=== PATIENT | female | born 1970 | race Caucasian/White ===

== ENCOUNTER 2025-05-02 18:47 | Inpatient (IN) | payer MEDICAID, SELFPAY ==
[2025-05-02 18:48] VITALS: BMI 28.9
[2025-05-02 18:57] VITALS: BP 106/61; PULSE 110; RESP 20; TEMP 36.7; O2SAT 97
--- NOTE | 2025-05-02 19:09 | EKG_ITS ---
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
--- NOTE | 2025-05-02 19:16 | EDNOTE_ITS ---
ED General RME/HPI General Chief complaint: Recheck/Abnormal Lab/Rx Stated complaint: SENT BY PCP FOR POSSIBLE DKA Time Seen by Provider: 05/02/25 18:57 Source: patient Arrival date/time: 05/02/25 18:47 Mode of arrival: ambulatory Limitations: no limitations RME / HPI RME / HPI narrative: Patient reportedly out of diabetic medication for extended period of time re ferred by primary care doctor for possible diabetic ketoacidosis. Patient does report ongoing polyuria/polydipsia and generalized fatigue and notes 20 pound weight loss over the last several months. There has been no definite fevers chills vomiting or diarrhea Onset (ago): week(s) Related Data Home Medications ?Medication ?Instructions ?Recorded ?Confirmed NO HX MED ##0 01/24/08 Allergies Allergy/AdvReac Type Severity Reaction Status Date / Time Penicillins Allergy Severe Swelling Verified 05/02/25 18:49 of Lip/Tongue/Throat Review of Systems Review of Systems Systems Reviewed: All systems reviewed, normal except as documented Constitutional Constitutional: Reports system reviewed and no additional complaints, except as documented Cardiovascular Cardiovascular: Denies chest pain, Reports dyspnea and Denies pedal edema Respiratory Respiratory: Denies chest congestion, Reports dyspnea and Denies excessive phlegm production Gastrointestinal Gastrointestinal: Denies diarrhea and Denies hematemesis Genitourinary Comments: Noted polyuria Neurologic Neurologic: Denies behavioral changes and Denies confusion Psychiatric Psychiatric: Denies abnormal sleep pattern, Denies behavioral changes and Denies confusion Endocrine Endocrine: Reports polydipsia and Reports polyuria Past Medical History Past Medical History RESPIRATORY: Positive Chronic Obstructive Pulmonary Disease (COPD) ENDOCRINE: Positive Diabetes Mellitus Type 2 Surgical History OTHER SURGICAL HX: Noncontributory Social History SMOKING STATUS: Unknown if ever smoked (No alcoholism) ED Exam General Limitations: Present no limitations General appearance: Present alert and in no apparent distress Head Head exam: Present atraumatic Eye Eye exam: Present normal appearance, PERRL and EOMI ENT ENT exam: Present normal exam, normal oropharynx and mucous membranes dry Neck Neck exam: Present normal inspection, full ROM and trachea midline Chest Chest inspection: Present normal inspection and symmetric chest wall rise Respiratory Respiratory exam: Present normal lung sounds bilaterally Cardiovascular Cardiovascular exam: Present normal rhythm, tachycardia and normal heart sounds Abdominal Exam Abdominal exam: Present soft and normal bowel sounds; Absent distention or tenderness Extremities Exam Extremities exam: Present normal inspection and full ROM Back Exam Back exam: Present normal inspection and full ROM Neurological Exam Neurological exam: Present alert, oriented X3 and CN II-XII intact Psychiatric Psychiatric exam: Present normal affect, normal mood and anxious Skin Skin exam: Present warm, dry, intact and pallor Course Quality Measures none Orders Category Date Time Status Admit to Inpatient Status Routine Admission 05/02/25 23:51 Active Patient Condition Routine Admission 05/02/25 23:51 Ordered Bedside Blood Glucose Q1H Care 05/02/25 23:54 Active Bedside Blood Glucose STAT Care 05/02/25 19:10 Active Paint Formulator Q4H Care 05/02/25 23:54 Active Paint Formulator STAT Care 05/02/25 19:10 Active Continuous Pulse Oximetry NOW Care 05/02/25 23:51 Completed DKA Protocol QSHIFT Care 05/02/25 23:54 Active EKG (ED ONLY) *Do not use* NOW Care 05/02/25 19:10 Completed Insert IV STAT Care 05/02/25 19:10 Active NPO NOW Care 05/02/25 23:52 Active Notify provider NEEDED Care 05/02/25 19:10 Active Notify provider NEEDED Care 05/02/25 23:51 Active Strict Intake and Output Routine Care 05/02/25 23:51 Ordered Referral Registered Dietitian Routine Cons 05/02/25 23:54 Active Diet NPO (NOW) Diet 05/02/25 23:52 Active EKG (ED Only) Stat Exams 05/02/25 19:09 Draft XR chest 1V portable Stat Exams 05/02/25 23:54 Ordered Arterial Blood Gas Stat Lab 05/02/25 23:23 Completed Beta Hydroxybutyrate DAILY Lab 05/04/25 09:00 Ordered Beta Hydroxybutyrate DAILY Lab 05/05/25 09:00 Ordered Beta Hydroxybutyrate DAILY Lab 05/06/25 09:00 Ordered Beta Hydroxybutyrate Stat Lab 05/02/25 19:51 Completed Blood Culture (Lab) Stat Lab 05/02/25 19:48 Received CBC AM DRAW Lab 05/03/25 05:00 Ordered CBC AM DRAW Lab 05/04/25 05:00 Ordered CBC AM DRAW Lab 05/05/25 05:00 Ordered CBC Stat Lab 05/02/25 19:51 Completed Comprehensive Metabolic Panel Stat Lab 05/02/25 19:51 Completed Glycohemoglobin w (eAG) AM DRAW Lab 05/03/25 05:00 Ordered LDH (Lactate Dehydrogenase) AM DRAW Lab 05/03/25 05:00 Ordered Lactate (Lactic Acid) Q4H Lab 05/03/25 04:00 Ordered Lactate (Lactic Acid) Q4H Lab 05/03/25 08:00 Ordered Lactate (Lactic Acid) Q4H Lab 05/03/25 12:00 Ordered Lactate (Lactic Acid) Q4H Lab 05/03/25 16:00 Ordered Lactate (Lactic Acid) Q4H Lab 05/03/25 20:00 Ordered Lactate (Lactic Acid) Q4H Lab 05/04/25 00:00 Ordered Lactate (Lactic Acid) Q4H Lab 05/04/25 04:00 Ordered Lactate (Lactic Acid) Q4H Lab 05/04/25 08:00 Ordered Lactate (Lactic Acid) Q4H Lab 05/04/25 12:00 Ordered Lactate (Lactic Acid) Q4H Lab 05/04/25 16:00 Ordered Lactate (Lactic Acid) Q4H Lab 05/04/25 20:00 Ordered Lactate (Lactic Acid) Q4H Lab 05/05/25 00:00 Ordered Lactate (Lactic Acid) Stat Lab 05/02/25 19:51 Completed Magnesium AM DRAW Lab 05/03/25 05:00 Ordered Magnesium AM DRAW Lab 05/04/25 05:00 Ordered Magnesium AM DRAW Lab 05/05/25 05:00 Ordered Magnesium Q4H Lab 05/03/25 04:00 Ordered Magnesium Q4H Lab 05/03/25 08:00 Ordered Magnesium Q4H Lab 05/03/25 12:00 Ordered Magnesium Q4H Lab 05/03/25 16:00 Ordered Magnesium Q4H Lab 05/03/25 20:00 Ordered Magnesium Q4H Lab 05/04/25 00:00 Ordered Magnesium Q4H Lab 05/04/25 04:00 Ordered Magnesium Q4H Lab 05/04/25 08:00 Ordered Magnesium Q4H Lab 05/04/25 12:00 Ordered Magnesium Q4H Lab 05/04/25 16:00 Ordered Magnesium Q4H Lab 05/04/25 20:00 Ordered Magnesium Q4H Lab 05/05/25 00:00 Ordered Magnesium Stat Lab 05/02/25 19:51 Completed Phosphorous AM DRAW Lab 05/03/25 05:00 Ordered Phosphorous AM DRAW Lab 05/04/25 05:00 Ordered Phosphorous AM DRAW Lab 05/05/25 05:00 Ordered Phosphorous Q4H Lab 05/04/25 00:00 Ordered Phosphorous Q4 Lab 05/04/25 04:00 Ordered Phosphorous Q4H Lab 05/04/25 08:00 Ordered Phosphorous Q4H Lab 05/04/25 12:00 Ordered Phosphorous Q4H Lab 05/04/25 16:00 Ordered Phosphorous Q4H Lab 05/04/25 20:00 Ordered Phosphorous Q4H Lab 05/05/25 00:00 Ordered Phosphorous Stat Lab 05/02/25 19:51 Completed Renal Function Panel Q4 Lab 05/03/25 04:00 Ordered Renal Function Panel Q4 Lab 05/03/25 08:00 Ordered Renal Function Panel Q4 Lab 05/03/25 12:00 Ordered Renal Function Panel Q4 Lab 05/03/25 16:00 Ordered Renal Function Panel Q4 Lab 05/03/25 20:00 Ordered Renal Function Panel Q4 Lab 05/04/25 00:00 Ordered Renal Function Panel Q4 Lab 05/04/25 04:00 Ordered Renal Function Panel Q4 Lab 05/04/25 08:00 Ordered Renal Function Panel Q4 Lab 05/04/25 12:00 Ordered Renal Function Panel Q4 Lab 05/04/25 16:00 Ordered Renal Function Panel Q4 Lab 05/04/25 20:00 Ordered Renal Function Panel Q4 Lab 05/05/25 00:00 Ordered Thyroid Stimulating Hormone AM DRAW Lab 05/03/25 05:00 Ordered Urinalysis Stat Lab 05/02/25 19:36 Completed Venous Blood Gas Q4 Lab 05/03/25 04:15 Ordered Venous Blood Gas Q4 Lab 05/03/25 08:15 Ordered Venous Blood Gas Q4H Lab 05/03/25 12:15 Ordered Venous Blood Gas Q4 Lab 05/03/25 16:15 Ordered Venous Blood Gas Q4 Lab 05/03/25 20:15 Ordered Venous Blood Gas Q4H Lab 05/04/25 00:15 Ordered Venous Blood Gas Q4H Lab 05/04/25 04:15 Ordered Venous Blood Gas Q4H Lab 05/04/25 08:15 Ordered Venous Blood Gas Q4H Lab 05/04/25 12:15 Ordered Venous Blood Gas Q4H Lab 05/04/25 16:15 Ordered Venous Blood Gas Q4H Lab 05/04/25 20:15 Ordered Venous Blood Gas Q4H Lab 05/05/25 00:15 Ordered Albuterol/Ipratr Rt [place] [Duoneb Rt [place]] Med 05/02/25 23:51 Ordered 3 ml INH Q2HR PRN Dextrose 5%-Lactated Ringers [D5-Lr] 1,000 ml Med 05/02/25 23:51 Ordered Pot Chl Additive [KCl Additive] 40 meq IV 250 mls/hr Dextrose 5%-Lactated Ringers [D5-Lr] 1,000 ml Med 05/02/25 23:51 Ordered IV 250 mls/hr Dextrose 50% Syr [D50w Syringe Abboject] Med 05/02/25 23:51 Ordered 25 ml IV PRNMRX1 PRN Enoxaparin [Lovenox] Med 05/03/25 09:00 Ordered 40 mg SC QDAY Insulin Regular Med 05/02/25 23:16 Discontinued 8 unit IV X1 ONE KCL 20 mEq/L in D5-LR Med 05/02/25 23:51 Ordered 20 meq in 1,000 ml IV 250 mls/hr Magnesium Sulfate 2 GM Ivpb [Magnesium Sulfate Ivpb] Med 05/02/25 23:51 Ordered 2 gm in 50 ml IV 25 mls/hr Nicotine Patch [Nicoderm Patch] Med 05/02/25 22:57 Discontinued 14 mg TOP X1 ONE Nicotine Patch [Nicoderm Patch] Med 05/03/25 09:00 Ordered 21 mg TOP QDAY POT PHOS 15 mMol in NS 250 ML [Pot Phos 15 mMol in NS Med 05/02/25 23:51 Ordered 250 ml] 15 mmol in 250 ml IV PRN POTASSIUM CHL 10 mEq IVPB [Kcl Ivpb] Med 05/02/25 23:51 Ordered 10 meq in 100 ml IV 100 mls/hr POTASSIUM CHL 10 mEq IVPB [Kcl Ivpb] Med 05/02/25 23:51 Ordered 10 meq in 100 ml IV PRN Pre-Mixed [Pre-mixed Bag] 1 bag Med 05/02/25 23:51 Ordered Insulin Reg 100 Units/100 ml [Myxredlin] 100 unit IV 0.1 unit/kg/hr Ringers Lactated 1000 ml [Lactated Ringers] 1,000 ml Med 05/02/25 23:51 Ordered Pot Chl Additive [KCl Additive] 20 meq IV 250 mls/hr Ringers Lactated 1000 ml [Lactated Ringers] 1,000 ml Med 05/02/25 23:51 Ordered Pot Chl Additive [KCl Additive] 40 meq IV 250 mls/hr Ringers Lactated 1000 ml [Lactated Ringers] 1,000 ml Med 05/02/25 19:09 Discontinued IV 250 mls/hr Ringers Lactated 1000 ml [Lactated Ringers] 1,000 ml Med 05/02/25 23:51 Ordered IV 250 mls/hr Ringers Lactated 1000 ml [Lactated Ringers] 1,000 ml Med 05/02/25 22:06 Discontinued IV 999 mls/hr Ringers Lactated 1000 ml [Lactated Ringers] 1,000 ml Med 05/02/25 22:09 Discontinued IV 999 mls/hr Ringers Lactated 1000 ml [Lactated Ringers] 1,000 ml Med 05/02/25 19:15 Discontinued IV Q2H Sodium Bicarb 8.4% SYR Med 05/02/25 23:51 Ordered 50 ml IV Q4HR PRN Sodium Chloride 0.9% 250 ml [Ns] 250 ml Med 05/02/25 23:51 Ordered Sod Phos Additive [NaPhos Additive] 15 mmol IV 62.5 mls/hr Code Status Routine Oth 05/02/25 23:51 Ordered Oxygen Delivery DAILY RT 05/02/25 23:52 Active Reevaluation(s) Reevaluation #1: Patient resting comfortably. Mildly tachycardic. Blood sugar trending downward after 1 L of saline. IV insulin ordered Time: 23:00 Vital Signs Vital signs: Vital Signs Temperature 98.1 F 05/02/25 18:57 Pulse Rate 110 H 05/02/25 18:57 Respiratory Rate 20 05/02/25 18:57 Blood Pressure 106/61 05/02/25 18:57 Pulse Oximetry (%) 97 05/02/25 18:57 Oxygen Delivery Method Room Air 05/02/25 18:57 Patient notably tachycardic mildly tachypneic at rest with normal oxygenation on room air Discharge Plan Plan Patient Disposition: Admit Acute Care w/in Hospital Patient condition on transfer: Stable Prescriptions/Referrals Prescriptions/Med Rec: No Action NO HX MED Qty: 0 Referrals: No Primary/Family,Physician [Primary Care Provider] - In 1 week Problem List Clinical Impression: Diabetic ketoacidosis, Acute dehydration Patient/Caregiver Discharge Instructions Print Language: Arabic Stand Alone Forms: Nelia Award Info., Patient Portal Info Letter MDM Narrative MDM hospital course: Patient reportedly out of diabetic medication for extended period of time referred by primary care doctor for possible diabetic ketoacidosis. Patient does report ongoing polyuria/polydipsia and generalized fatigue and notes 20 pound weight loss over the last several months.. Please see PE findings. Laboratory markers are currently pending. Patient is placed on county records management officer and IV established and patient hydrated with saline to correct volume deficit with slight reduction in blood sugar. Anion gap at 16 and ketones at 5.4. Suspect mild diabetic ketoacidosis patient administered IV bolus of insulin and hospitalist was consulted for consideration of admission Clinical Information Provided by patient Medical Records Reviewed [facility] Meds/Rx Considered, not Ordered Describe details: N/A Labs/Rad/Tests considered, not Ordered Describe details: Labs reviewed Chronic Illness/Social Conditions which may negatively complicate care or outcome(s)-explain: Hx of noncompliance Lab Interpretation Labs: interpreted by nd Medication Administration(s) none (IV regular insulin) Medication Administration History Albuterol/Ipratropium (Albuterol/Ipratropium (Duoneb) Rt [place] 3 Ml Nebu) 3 ml INH Q2HR PRN PRN Reason: SHORTNESS OF BREATH OR WHEEZE Stop: 06/01/25 23:50 Dextrose (Dextrose 50%-Water Inj 50 Ml Syringe) 25 ml IV PRNMRX1 PRN PRN Reason: Blood Sugar - Low Enoxaparin Sodium (Enoxaparin Sod Inj 40 Mg/0.4 Ml Syringe) 40 mg SC QDAY GUERLINE Stop: 05/17/25 08:59 Potassium Chloride (Kcl Ivpb) 10 meq in 100 mls @ 100 mls/hr IV .Q1H PRN PRN Reason: IF POTASSIUM LESS THAN 3.3 Stop: 06/01/25 23:50 Magnesium Sulfate (Magnesium Sulfate Ivpb) 2 gm in 50 mls @ 25 mls/hr IV .Q2H PRN PRN Reason: PER DKA PROTOCOL Stop: 06/01/25 23:50 Insulin Human Regular 100 unit (/ IV Miscellaneous Supplies) 100 mls @ 7.893 mls/hr IV .[id number] PRN; Protocol PRN Reason: PER PROTOCOL Stop: 06/01/25 23:50 Dextrose/Lactated Ringer's (D5-Lr) 1,000 mls @ 250 mls/hr IV .Q4H PRN PRN Reason: PER PROTOCOL Stop: 06/01/25 23:50 Lactated Ringer's (Lactated Ringers) 1,000 mls @ 250 mls/hr IV .Q4H PRN PRN Reason: PER PROTOCOL Stop: 05/03/25 23:50 Potassium Chloride 20 meq/ (Lactated Ringer's) 1,010 mls @ 250 mls/hr IV .Q4H3M PRN PRN Reason: K LEVEL 3.3 TO 5.3mM/L Stop: 06/01/25 23:50 Potassium Chloride 40 meq/ (Lactated Ringer's) 1,020 mls @ 250 mls/hr IV .Q4H5M PRN PRN Reason: K LEVEL < 3.3 mM/L Stop: 06/01/25 23:50 Potassium Chloride 40 meq/ (Dextrose/Lactated Ringer's) 1,020 mls @ 250 mls/hr IV .Q4H5M PRN PRN Reason: K LEVEL < 3.3mM/L Stop: 06/01/25 23:50 Potassium Cl/Dextrose/Lact Ringer's (Kcl 20 Meq/L In D5-Lr) 20 meq in 1,000 mls @ 250 mls/hr IV .Q4H PRN PRN Reason: K LEVEL 3.3 TO 5.3 mM/L Stop: 06/01/25 23:50 Potassium Chloride (Kcl Ivpb) 10 meq in 100 mls @ 50 mls/hr IV PRN PRN PRN Reason: K LEVEL 3.3 to 5.3 & BG > 200 Stop: 06/01/25 23:50 Potassium Phosphate (Pot Phos 15 Mmol In Ns 250 Ml) 15 mmol in 250 mls @ 62.5 mls/hr IV PRN PRN PRN Reason: Phosphate <= 1mg/dL Stop: 06/01/25 23:50 Sodium Phosphate 15 mmol/ (Sodium Chloride) 255 mls @ 62.5 mls/hr IV .Q4H5M PRN PRN Reason: Phosphate <= 1mg/dL and K> than 5.3 Stop: 06/01/25 23:50 Nicotine (Nicotine Patch 21 Mg/24 Hr Patch.Td24) 21 mg TOP QDAY GUERLINE Stop: 06/02/25 08:59 Sodium Bicarbonate (Sodium Bicarb Inj 8.4% Syr 50 Ml Syringe) 50 ml IV Q4HR PRN PRN Reason: For ph <= to 7.0 Stop: 06/01/25 23:50 Discontinued Medications Lactated Ringer's (Lactated Ringers) 1,000 mls @ 250 mls/hr IV .Q4H PRN PRN Reason: PER PROTOCOL Stop: 05/03/25 19:08 Lactated Ringer's (Lactated Ringers) 1,000 mls @ 500 mls/hr IV Q2H GUERLINE Stop: 05/02/25 23:14 Last Admin: 05/02/25 22:12 Dose: Not Given Documented By: ARIC Non-Admin Reason: Discontinued Admin: 05/02/25 22:11 Dose: Not Given Documented By: ARIC Non-Admin Reason: Discontinued Lactated Ringer's (Lactated Ringers) 1,000 mls @ 999 mls/hr IV .Q1H1M ONE Stop: 05/02/25 23:06 Last Infusion: 05/02/25 23:13 Dose: Infused Documented By: Admin: 05/02/25 22:11 Dose: 999 mls/hr Documented By: WEI Lactated Ringer's (Lactated Ringers) 1,000 mls @ 999 mls/hr IV .Q1H1M ONE Stop: 05/02/25 23:09 Last Infusion: 05/02/25 23:43 Dose: Infused Documented By: Admin: 05/02/25 22:19 Dose: 999 mls/hr Documented By: WEI Insulin Human Regular (Insulin Hum Regular 1 Unit/0.01 Ml (Per Unit)) 8 unit IV X1 ONE Stop: 05/02/25 23:17 Last Admin: 05/02/25 23:39 Dose: 8 unit Documented By: ARIC Co-signed By: Nicotine (Nicotine Patch 14 Mg/24 Hr Patch.Td24) 14 mg TOP X1 ONE Stop: 05/02/25 22:58 Last Admin: 05/02/25 23:36 Dose: 14 mg Documented By: ARIC Diagnosis Differential diagnosis: Diabetic ketoacidosis Dispositon Disposition: Admit
[2025-05-02 19:41] LABS: Collection Type, Urine Voided
[2025-05-02 19:57] LABS: Bacteria,Urine 1+; Bilirubin,Urine Negative (Negative); Blood,Urine Negative (Negative); Clarity,Urine Clear (Clear/Hazy); Color,Urine Lt-Yellow (Lt Yel-Yel); Glucose, Urine 4+ (Negative); Ketones,Urine 3+ (Negative); Leukocyte Esterase,Urine Negative (Negative); Nitrite,Urine Negative (Negative); PH,Urine 6.0 (5.0-7.0); Protein,Urine Negative (Neg - Trace); RBC,Urine 2 /hpf (0-3); Specific Gravity,Urine 1.033 (1.001-1.035); Squamous Epithelial Cell,Urine < 1 /hpf (0-5); Urobilinogen,Urine Negative mg/dL (0.0-1.0); WBC,Urine 2 /hpf (0-5)
[2025-05-02 20:03] LABS: Lactate (Lactic Acid) 1.6 mMol/L (0.4-2.0)
[2025-05-02 20:05] LABS: Basophils # (Auto) 0.1 Thou/mm3 (0.0-0.2); Basophils % (Auto) 1 % (0-2.5); Eosinophils # (Auto) 0.0 Thou/mm3 (0.0-0.5); Eosinophils % (Auto) 0 % (0-10); Hematocrit 43.3 % (36.0-46.0); Hemoglobin 14.7 g/dL (12.0-16.0); Immature Granulocytes Auto 0.26 Thou/mm3 (0.00-0.00); Lymphocytes # (Auto) 1.7 Thou/mm3 (1.0-4.8); Lymphocytes % (Auto) 11 % (10-50); Mean Corpuscular HGB Conc 33.9 g/dl (31.0-37.0); Mean Corpuscular Hemoglobin 29.9 pg (25.0-35.0); Mean Corpuscular Volume 88 fL (80-100); Monocytes # (Auto) 1.4 Thou/mm3 (0.0-0.8); Monocytes % (Auto) 9 % (0-12); Neutrophils # (Auto) 12.1 Thou/mm3 (1.8-7.7); Neutrophils % (Auto) 78 % (37-80); Nucleated Red Blood Cell # 0.00 Thou/mm3 (0.00-0.00); Nucleated Red Blood Cell % 0 /100 WBC (0); Platelet Count 257 Thou/mm3 (140-440); RDW Standard Deviation 40.6 fL (36.4-46.3); Red Blood Count 4.92 Miln/mm3 (4.00-5.20); White Blood Count 15.5 Thou/mm3 (3.6-11.0)
[2025-05-02 20:13] LABS: Beta Hydroxybutyrate 5.4 mmol/L (<0.6)
[2025-05-02 20:41] LABS: Alanine Aminotransferase 11 U/L (10-49); Albumin, Serum 4.0 gm/dL (3.5-5.0); Albumin/Globulin Ratio 1.5 (1.2-2.2); Alkaline Phosphatase 99 U/L (46-116); Anion Gap 16 (7-16); Aspartate Amino Transferase < 8 U/L (0-34); BUN/Creatinine Ratio 13 Ratio (12-20); Bilirubin,Total 0.3 mg/dL (0.3-1.2); Blood Urea Nitrogen 14 mg/dL (9-23); Calcium 9.9 mg/dL (8.3-10.6); Calcium (Corrected) 9.9 mg/dL (8.5-10.1); Carbon Dioxide 18.1 mMol/L (20.0-31.0); Chloride 96 mMol/L (98-107); Creatinine (Component) 1.1 mg/dL (0.6-1.3); Estimated Creatinine Clearance 59.3 mL/min (>60); Globulin 2.6 gm/dL (2.3-3.5); Magnesium 2.0 mg/dL (1.6-2.6); Osmolality,Calculated 287 (275-295); Phosphorous 3.8 mg/dL (2.4-5.1); Potassium 4.5 mMol/L (3.4-5.1); Sodium 130 mMol/L (136-145); Total Protein 6.6 gm/dL (5.7-8.2); eGFR 59 See Note
[2025-05-02 20:50] LABS: Glucose 569 mg/dL (74-106)
[2025-05-02 22:11] VITALS: BP 134/82; PULSE 93; RESP 12; TEMP 37; O2SAT 99
[2025-05-02] MEDS: RINGERS LACTATED 1000 ML 1,000 ML 999 ML IV ×2 (22:11→22:19)
--- NOTE | 2025-05-02 23:00 | PC.NURSE ---
PT A/O CAME TO ER TODAY STATES SHE WAS SENT OVER BY HER PMD. PT WENT TO SEE HER TODAY AND HAD HER BLOOD SUGAR CHECKED. WAS TOLD TO COME HERE BECAUSE IT WAS 556. PT STATES HAS NOT HAD HER METFORMIN OVER 8 MONTHS D/T ISSUES WITH HER PHARMACY. PT REPORTS BEEN FEELING LIKE SHE CANT BREATH AND WEAK PAST FEW DAYS. PT REPORTS SHE SMOKES DAILY AND LAST DID METH 4 DAYS AGO.
--- NOTE | 2025-05-02 23:06 | PC.NURSE ---
DR. FARRELL MADE AWARE OF PATIENT BLOOD SUGAR 448 AFTER FIRST LITER. SECOND LITER LR STARTED.
[2025-05-02 23:27] LABS: Base Excess -8 (-3-3); HCO3 16 mEq/L (20-26); Inspired Oxygen, FIO2 21 %; O2 Saturation 91 % (91-98); PCO2 28 mmHg (32.0-48.0); pH, Arterial 7.37 (7.35-7.45)
[2025-05-02 23:30] LABS: Allen Test Performed/OK; PO2 60 mmHg (83-108); Puncture Site Left Radial
[2025-05-02] MEDS: NICOTINE PATCH 14 MG/24 HR PATCH.TD24 TOP (23:36)
[2025-05-02] MEDS: INSULIN HUM REGULAR 1 UNIT/0.01 ML (PER UNIT) 8 UNIT IV (23:39)
--- NOTE | 2025-05-02 23:54 | XR_ITS ---
Examination: AP chest single view TECHNIQUE: AP portable upright chest single view Date and time: May 03, 2025, 0047 hours INDICATIONS: Clinical diagnosis is diabetic ketoacidosis, congestion and shortness of breath today. FINDINGS: Heart size. Lungs are clear. The osseous structures are intact. IMPRESSION: No active disease
[2025-05-03] VITALS (44 sets, daily range): BP systolic 95–152; BP diastolic 43–96; PULSE 94–119; RESP 15–98; TEMP 36.6–37.6; O2SAT 93–100; BMI 28.9
--- NOTE | 2025-05-03 00:08 | ESHP_ITS ---
Documentation for date of: 05/02/25 [facility] History of Present Illness Chief complaint: weakness History of present illness: Patient is 55 years old female with past medical history of COPD, type 2 diabetes mellitus and substance use disorder presented to the ED after she was seen by her PCP in clinic due to hyperglycemia. Patient reports she was feeling extremely weak and nauseous for the last several days, denies any vomiting. She was off her home medications for approximately 9 months because they were unable to refill it. Today she came to clinic for regular checkup and her blood glucose was high prompting her PCP sending her to the ED. She denies any fever, chills, chest pain, dysuria symptoms. She does not use oxygen for her COPD and never been prescribed. She previously was prescribed metformin and Rybelsus for her diabetes. She did not have any podiatry or ophthalmology checkup anytime recently. She uses methamphetamine for many years, last use 4 days ago. She smokes for approximately 45 years 1 pack a day. On arrival to the ED her blood pressure 106/61, pulse 110, respirations 20, and pressure 98.1 ?F, oxygen saturation 97% on room air. Labs showed WBCs 15.5, sodium 130, potassium 4.5, chloride 96, bicarb 18.1, anion gap 16, creatinine 1.1, glucose 569, lactic acid 1.6, BHB 5.4. ABG showed pH 7.37, PCO2 28, PO2 60. Urinalysis showed glucose 4+, ketones 3+, bacteria 1+. EKG showed sinus tachycardia. She was given 2 L of LR and 8 units of insulin in the ED. Patient was admitted to ICU for further management of DKA. PMH: COPD, type 2 diabetes mellitus and substance use disorder. PSH: Tonsillectomy. SH: Denies drinking alcohol. Smokes tobacco for 45+ years 1 pack a day. Uses methamphetamine several times a week, last use 4 days ago. FH: Unremarkable. Allergies: Penicillin. Medications: Metformin, Rybelsus, albuterol. Review of Systems Review of Systems Systems Reviewed: All systems reviewed, normal except as documented Exam Vital Signs Temp Pulse Resp BP Pulse Ox O2 Del Method 98.3 F 95 18 152/96 H 98 Room Air 05/03/25 00:04 05/03/25 00:04 05/03/25 00:04 05/03/25 00:04 05/03/25 00:04 05/03/25 00:04 Narrative Exam Gen: Well-developed female appears older than stated age. HEENT: NCAT, PERRLA, EOMI, MMM, anicteric conjunctivae, poor dentition. CVS: normal S1 and S2. Regular tachycardia. No M/R/G. Resp: Mild wheezing B/L. No rhonchi, rales, crackles. Abd: soft, obese, non-tender, non-distended. BS+ in all 4 quadrants. MSK: Good ROM in BUE & BLE. No rash. Trace pitting edema BLE. Neuro: CN II-XII grossly intact. Strength 5/5 in BUE & BLE. Alert and oriented x3. Results: Labs 05/02/25 19:51 05/03/25 00:18 Labs: Short CBC 05/02/25 Range/Units 19:51 WBC 15.5 H (3.6-11.0) Thou/mm3 Hgb 14.7 (12.0-16.0) g/dL Hct 43.3 (36.0-46.0) % Plt Count 257 (140-440) Thou/mm3 BMP 05/02/25 19:51 Sodium 130 L Potassium 4.5 Chloride 96 L Carbon Dioxide 18.1 L BUN 14 Creatinine 1.1 Glucose 569 H* Calcium 9.9 Liver Function 05/02/25 Range/Units 19:51 Total Bilirubin 0.3 (0.3-1.2) mg/dL AST < 8 (0-34) U/L ALT 11 (10-49) U/L Alkaline Phosphatase 99 (46-116) U/L Albumin 4.0 (3.5-5.0) gm/dL Urine 05/02/25 Range/Units 19:36 Urine Color Lt-Yellow (Lt Yel-Yel) Urine Clarity Clear (Clear/Hazy) Urine pH 6.0 (5.0-7.0) Ur Specific [place]onson 1.033 (1.001-1.035) Urine Protein Negative (Neg - Trace) Urine Glucose (UA) 4+ A (Negative) ABG Interpretation ABG results: 05/02/25 23:23 ABG pH 7.37 ABG pCO2 28 L ABG pO2 60 L ABG HCO3 16 L ABG O2 Saturation 91 ABG Base Excess -8 L Quality Measures Quality Measures VTE prophylaxis Medications Home Medications and Allergies Home Medications ?Medication ?Instructions ?Recorded ?Confirmed ?Type NO HX MED ##0 01/24/08 History Allergies Allergy/AdvReac Type Severity Reaction Status Date / Time Penicillins Allergy Severe Swelling Verified 05/02/25 18:49 of Lip/Tongue/Throat Visit Medications Albuterol/Ipratropium (Albuterol/Ipratropium (Duoneb) Rt [place] 3 Ml Nebu) 3 ml INH Q2HR PRN PRN Reason: SHORTNESS OF BREATH OR WHEEZE Stop: 06/01/25 23:50 Dextrose (Dextrose 50%-Water Inj 50 Ml Syringe) 25 ml IV [id number] PRN PRN Reason: Blood Sugar - Low Enoxaparin Sodium (Enoxaparin Sod Inj 40 Mg/0.4 Ml Syringe) 40 mg SC QDAY GUERLINE Stop: 05/17/25 08:59 Potassium Chloride (Kcl Ivpb) 10 meq in 100 mls @ 100 mls/hr IV .Q1H PRN PRN Reason: IF POTASSIUM LESS THAN 3.3 Stop: 06/01/25 23:50 Magnesium Sulfate (Magnesium Sulfate Ivpb) 2 gm in 50 mls @ 25 mls/hr IV .Q2H PRN PRN Reason: PER DKA PROTOCOL Stop: 06/01/25 23:50 Insulin Human Regular 100 unit (/ IV Miscellaneous Supplies) 100 mls @ 7.893 mls/hr IV .[id number] PRN; Protocol PRN Reason: PER PROTOCOL Stop: 06/01/25 23:50 Dextrose/Lactated Ringer's (D5-Lr) 1,000 mls @ 250 mls/hr IV .Q4H PRN PRN Reason: PER PROTOCOL Stop: 06/01/25 23:50 Lactated Ringer's (Lactated Ringers) 1,000 mls @ 250 mls/hr IV .Q4H PRN PRN Reason: PER PROTOCOL Stop: 05/03/25 23:50 Potassium Chloride 20 meq/ (Lactated Ringer's) 1,010 mls @ 250 mls/hr IV .Q4H3M PRN PRN Reason: K LEVEL 3.3 TO 5.3mM/L Stop: 06/01/25 23:50 Potassium Chloride 40 meq/ (Lactated Ringer's) 1,020 mls @ 250 mls/hr IV .Q4H5M PRN PRN Reason: K LEVEL < 3.3 mM/L Stop: 06/01/25 23:50 Potassium Chloride 40 meq/ (Dextrose/Lactated Ringer's) 1,020 mls @ 250 mls/hr IV .Q4H5M PRN PRN Reason: K LEVEL < 3.3mM/L Stop: 06/01/25 23:50 Potassium Cl/Dextrose/Lact Ringer's (Kcl 20 Meq/L In D5-Lr) 20 meq in 1,000 mls @ 250 mls/hr IV .Q4H PRN PRN Reason: K LEVEL 3.3 TO 5.3 mM/L Stop: 06/01/25 23:50 Potassium Chloride (Kcl Ivpb) 10 meq in 100 mls @ 50 mls/hr IV PRN PRN PRN Reason: K LEVEL 3.3 to 5.3 & BG > 200 Stop: 06/01/25 23:50 Potassium Phosphate (Pot Phos 15 Mmol In Ns 250 Ml) 15 mmol in 250 mls @ 62.5 mls/hr IV PRN PRN PRN Reason: Phosphate <= 1mg/dL Stop: 06/01/25 23:50 Sodium Phosphate 15 mmol/ (Sodium Chloride) 255 mls @ 62.5 mls/hr IV .Q4H5M PRN PRN Reason: Phosphate <= 1mg/dL and K> than 5.3 Stop: 06/01/25 23:50 Nicotine (Nicotine Patch 21 Mg/24 Hr Patch.Td24) 21 mg TOP QDAY [facility] Stop: 06/02/25 08:59 Sodium Bicarbonate (Sodium Bicarb Inj 8.4% Syr 50 Ml Syringe) 50 ml IV Q4HR PRN PRN Reason: For ph <= to 7.0 Stop: 06/01/25 23:50 Discontinued Medications Lactated Ringer's (Lactated Ringers) 1,000 mls @ 250 mls/hr IV .Q4H PRN PRN Reason: PER PROTOCOL Stop: 05/03/25 19:08 Lactated Ringer's (Lactated Ringers) 1,000 mls @ 500 mls/hr IV Q2H GUERLINE Stop: 05/02/25 23:14 Last Admin: 05/02/25 22:12 Dose: Not Given Lactated Ringer's (Lactated Ringers) 1,000 mls @ 999 mls/hr IV .Q1H1M ONE Stop: 05/02/25 23:06 Last Infusion: 05/02/25 23:13 Dose: Infused Lactated Ringer's (Lactated Ringers) 1,000 mls @ 999 mls/hr IV .Q1H1M ONE Stop: 05/02/25 23:09 Last Infusion: 05/02/25 23:43 Dose: Infused Insulin Human Regular (Insulin Hum Regular 1 Unit/0.01 Ml (Per Unit)) 8 unit IV X1 ONE Stop: 05/02/25 23:17 Last Admin: 05/02/25 23:39 Dose: 8 unit Nicotine (Nicotine Patch 14 Mg/24 Hr Patch.Td24) 14 mg TOP X1 ONE Stop: 05/02/25 22:58 Last Admin: 05/02/25 23:36 Dose: 14 mg Assessment & Plan Plan Patient is 55 years old female with past medical history of COPD, type 2 diabetes mellitus and substance use disorder presented to the ED after she was seen by her PCP in clinic due to hyperglycemia and was admitted to ICU for further management of DKA. Neuro: No active problem. Cardiovascular: No active problem. Respiratory: #COPD. #Active tobacco smoking status. Patient reports smoking tobacco for 45+ years 1 pack a day, uses albuterol as needed for wheezing, never been prescribed home oxygen. Plan: -Breathing treatments with DuoNebs. -Supplemental oxygen. -Chest x-ray ordered. -Nicotine patch. Gastrointestinal: No active problem. Renal: No active problem. Endocrine: #Diabetic ketoacidosis. #Aej-ceanwge-utwmfimne type 2 diabetes mellitus. Patient was having significant weakness and nausea for the last several days and was sent to the ED by her PCP due to hyperglycemia. Labs showed bicarb 18.1, anion gap 16, glucose 569, BHB 5.4. ABG showed pH 7.37, PCO2 28, PO2 60. She was given 2 L of LR and 8 units of insulin in the ED. Patient was admitted to ICU for further management of DKA. Patient does not have metabolic acidosis on ABG and her anion gap is borderline, bicarb is slightly below normal limit, BHB and glucose significantly elevated, given these findings patient is going toward DKA therefore will be admitted to ICU for IV insulin and IV fluids. Patient was recommended to have better diabetes control outpatient and was recommended to follow-up with [facility]. Plan: -Started on insulin drip per DKA protocol. -Started on LR 250 cc/h per DKA protocol -Correct electrolytes per DKA protocol. -Renal panel and VBG every 4 hours. -N.p.o. Infectious Disease: No active problem. Hematology/Oncology: #Leukocytosis. On admission patient's WBC is 15.5. Patient denies any fever, chills, upper respiratory infection symptoms, dysuria symptoms. Her urinalysis showed 1+ bacteria but no WBCs or leukocyte esterase. At this moment no signs of infection were found, will continue to monitor without antibiotics. Chest x-ray was ordered. Diet: NPO. Lines: peripheral x2. DVT prophylaxis: Lovenox. GI prophylaxis: none. Code status: full code. Disposition: ICU. Plan of care discussed with attending Dr. Barajas. Devendra Lopez MD, PGY 3. Disclaimer: This note was dictated by speech recognition. Minor errors in pipe setter may be present due to voice recognition software. Attending Provider Attestation/Addendum After examination of the patient and review of the clinical data I feel that this patient needs admission to the hospital for further treatment/evaluation. I have discussed and was present for the essential components of the history, physical examination, diagnosis, and treatment plan with the resident. I agree with the patient's care as documented by the resident and amended herein by me. Pete Barajas DO. Although this document has been carefully reviewed, there may still be some phonetic and other typographical errors. These errors are purely grammatical due to imperfections in the software program and should not be construed in any way to compromise the substance of the patient's medical care during this visit. Patient seen and evaluated in the ED. Patient is a 55-year-old female with a significant past medical history of COPD not on home O2, type 2 diabetes, tobacco (current smoker with 56-jifl-cwrh history) use and substance abuse (methamphetamines) and medication noncompliance, presented to the ED at the request of her PCP for hyperglycemia. Patient further endorsed nausea, generalized weakness and altered mentation in the last several days prior to admission. The patient stated she has not been compliant with her medications for the last 8 months, she stated that she has been unable to fill most of her medications at the pharmacy however has been taking her Rybelsus as prescribed. Patient also stated she has not had regular foot exams or ophthalmology examinations for her diabetes. She is also unsure if her kidneys have been checked. She does endorse worsening diabetic neuropathy in her feet. Patient is an active smoker and active methamphetamine user, last used approximately 4 days ago. Of note, the patient did state she is unhappy with her outpatient care and would like to follow-up with the [facility] at time of discharge. She is also unsure for patient was given 2 L LR and 8 units of regular insulin in the ED In the ED, blood pressure 106/61 mmHg, patient tachycardic with a pulse of 110 however on room air with an SpO2 of 97%. Significant labs include WBC of 15.5, 80 demonstrated a pH of 7.37, EOG114, PO260 and a bicarb of 16. Sodium 130, potassium 4.5, bicarb 18.1, anion gap 16 however did slightly open wider to 17. Blood glucose was 569 on arrival, beta hydroxybutyrate elevated to 5.4. Urinalysis demonstrated 3+ ketones, 4+ glucose and 1+ bacteria however WBCs were 2. U tox was negative. EKG demonstrated sinus tachycardia, chest x-ray from my read demonstrated some vascular congestion however official read pending. Patient subsequently admitted to the intensive care unit for diabetic ketoacidosis. Potassium was WNL, patient started on insulin drip, and LR at 250 cc/h. Strict I's and O's, Accu-Cheks q1h, BMP/phos q4h. Will continue to monitor potassium and repleate as needed, once blood glucose decreases to 250, will add dextrose. A1c also ordered and pending, patient NPO. Nicotine patch ordered
--- NOTE | 2025-05-03 00:23 | PC.NURSE ---
PT FINGER STICK [id number], DR BELL MADE AWARE
--- NOTE | 2025-05-03 00:44 | PC.NURSE ---
PT REFUSED PURWIK AND SEQUEIRA CATHETER, PT SATES SHE CAN GO ON HER OWN AND WILL LET US KNOW. DR BELL MADE AWARE
[2025-05-03 00:47] LABS: Albumin, Serum 3.4 gm/dL (3.5-5.0); Anion Gap 17 (7-16); BUN/Creatinine Ratio 13 Ratio (12-20); Blood Urea Nitrogen 13 mg/dL (9-23); Calcium 8.7 mg/dL (8.3-10.6); Calcium (Corrected) 9.2 mg/dL (8.5-10.1); Carbon Dioxide 19.4 mMol/L (20.0-31.0); Chloride 98 mMol/L (98-107); Creatinine (Component) 1.0 mg/dL (0.6-1.3); Estimated Creatinine Clearance 65.2 mL/min (>60); Glucose 303 mg/dL (74-106); Magnesium 1.6 mg/dL (1.6-2.6); Osmolality,Calculated 279 (275-295); Phosphorous 3.1 mg/dL (2.4-5.1); Potassium 3.7 mMol/L (3.4-5.1); Sodium 134 mMol/L (136-145); eGFR > 60 See Note
[2025-05-03 01:08] LABS: Amphetamine/Methamp Scrn,U Negative (Negative); Barbiturate Screen,Urine Negative (Negative); Benzodiazepines Screen,Urine Negative (Negative); Benzoylecgonine Screen, Ur Negative (Negative); Fentanyl Screen,Urine Negative (Negative); Opiate Screen,Urine Negative (Negative); THC Screen,Urine Negative (Negative)
[2025-05-03] MEDS: Magnesium Sulfate 2 GM Ivpb 2 GM/50 ML BAG IV ×3 (01:14→22:17)
[2025-05-03] MEDS: INSULIN REG 100 UNITS/100 ML 100 UNIT in PRE-MIXED 1 BAG 7.893 UNIT IV (01:15)
[2025-05-03] MEDS: RINGERS LACTATED 1000 ML 1,000 ML 250 ML IV (01:19)
[2025-05-03] MEDS: POTASSIUM CHL 10 mEq IVPB 10 MEQ/100 ML BAG 50 MEQ IV (01:19)
[2025-05-03] MEDS: POTASSIUM CHL 10 mEq IVPB 10 MEQ/100 ML BAG 100 MEQ IV (03:00)
[2025-05-03] MEDS: KCL 20 mEq/L in D5-LR 20 MEQ/1,000 ML BAG 250 MEQ IV (05:22)
[2025-05-03 05:51] LABS: Lactate (Lactic Acid) 2.7 mMol/L (0.4-2.0)
[2025-05-03 05:52] LABS: Base Excess, Venous -1 (-3-3); O2 Saturation, Venous 86 % (96-97); PCO2, Venous 34 mmHg (36-56); PO2, Venous 48 mmHg (15-58); pH, Venous 7.43 (7.33-7.66)
[2025-05-03 06:00] LABS: Basophils # (Auto) 0.1 Thou/mm3 (0.0-0.2); Basophils % (Auto) 0 % (0-2.5); Eosinophils # (Auto) 0.1 Thou/mm3 (0.0-0.5); Eosinophils % (Auto) 1 % (0-10); Hematocrit 38.3 % (36.0-46.0); Hemoglobin 13.3 g/dL (12.0-16.0); Immature Granulocytes Auto 0.15 Thou/mm3 (0.00-0.00); Lymphocytes # (Auto) 1.8 Thou/mm3 (1.0-4.8); Lymphocytes % (Auto) 16 % (10-50); Mean Corpuscular HGB Conc 34.7 g/dl (31.0-37.0); Mean Corpuscular Hemoglobin 30.0 pg (25.0-35.0); Mean Corpuscular Volume 87 fL (80-100); Monocytes # (Auto) 0.8 Thou/mm3 (0.0-0.8); Monocytes % (Auto) 7 % (0-12); Neutrophils # (Auto) 8.6 Thou/mm3 (1.8-7.7); Neutrophils % (Auto) 75 % (37-80); Nucleated Red Blood Cell # 0.00 Thou/mm3 (0.00-0.00); Nucleated Red Blood Cell % 0 /100 WBC (0); Platelet Count 192 Thou/mm3 (140-440); RDW Standard Deviation 39.8 fL (36.4-46.3); Red Blood Count 4.43 Miln/mm3 (4.00-5.20); White Blood Count 11.5 Thou/mm3 (3.6-11.0)
[2025-05-03 06:28] LABS: Albumin, Serum 3.2 gm/dL (3.5-5.0); Anion Gap 13 (7-16); BUN/Creatinine Ratio 13 Ratio (12-20); Blood Urea Nitrogen 9 mg/dL (9-23); Calcium 8.5 mg/dL (8.3-10.6); Calcium (Corrected) 9.1 mg/dL (8.5-10.1); Carbon Dioxide 20.6 mMol/L (20.0-31.0); Chloride 102 mMol/L (98-107); Creatinine (Component) 0.7 mg/dL (0.6-1.3); Estimated Creatinine Clearance 93.2 mL/min (>60); Glucose 174 mg/dL (74-106); LDH (Lactate Dehydrogenase) 212 U/L (120-246); Magnesium 1.7 mg/dL (1.6-2.6); Osmolality,Calculated 274 (275-295); Phosphorous 2.1 mg/dL (2.4-5.1); Potassium 3.8 mMol/L (3.4-5.1); Sodium 136 mMol/L (136-145); Thyroid Stimulating Hormone 0.37 uIU/mL (0.55-4.78); eGFR > 60 See Note
[2025-05-03 06:31] LABS: Glucose Estimated Average 355 mg/dL (80-131); Hemoglobin A1C > 14.0 % Hgb (4.8-6.0)
[2025-05-03] MEDS: ENOXAPARIN SOD INJ 40 MG/0.4 ML SYRINGE SC (08:00)
[2025-05-03] MEDS: NICOTINE PATCH 21 MG/24 HR PATCH.TD24 TOP (08:00)
[2025-05-03 08:24] LABS: Cardiac Risk Estimate 12.5 RATIO (3.7-5.6); Cholesterol 125 mg/dL (132-200); Free T4 (Free Thyroxine) 1.03 ng/dL (0.89-1.76); HDL Cholesterol 10 mg/dL (40-60); LDL Cholesterol,Calculated 63 mg/dL (0-130); Triglycerides 259 mg/dL (30-150)
--- NOTE | 2025-05-03 08:42 | EKG_ITS ---
[facility] Test Date: 2025-05-03 Pat Name: MARIA INES COX [facility] Gender[facility] Change Management Director: GISELLE : 1970 Requested By: Sue Reina Order Number: [id number] Reading MD: Sue Reina Measurements Intervals [place] Rate: 107 P: 64 CA: 92 QRS: 85 QRSD: 74 T: 54 QT: 332 QTc: 444 Interpretive Statements SINUS TACHYCARDIA WITH SHORT CA INTERVAL ABNORMAL RHYTHM ECG Compared to ECG 05/02/2025 19:24:04 Short CA interval now present /store/S0/[id number]
[2025-05-03 08:43] LABS: Reflex Lactate? Y
[2025-05-03] MEDS: NAPH,KPH MBDB 1 PACKET (1.5 GM) PO ×2 (08:57→20:47)
[2025-05-03] MEDS: INSULIN GLARGINE (Lantus) 5 UNIT/0.05 ML (PER 5 UNITS) 36 UNIT SC (09:06)
[2025-05-03] MEDS: KCL 20 mEq/L in D5-LR 20 MEQ/1,000 ML BAG 150 MEQ IV (09:10)
[2025-05-03 09:49] LABS: Lactic Acid, 3 HR 3.4 mMol/L (0.4-2.0)
[2025-05-03 09:51] LABS: Base Excess, Venous 1 (-3-3); O2 Saturation, Venous 83 % (96-97); PCO2, Venous 29 mmHg (36-56); PO2, Venous 42 mmHg (15-58); pH, Venous 7.51 (7.33-7.66)
--- NOTE | 2025-05-03 10:02 | ESPR_ITS ---
<Statement entered by Ana Meng MD - 05/04/25 12:32> TOTAL TIME: 45MINUTES ON DIRECT MEDICAL CARE, MANAGEMENT - COORDINATION AND COUNSELING > 50% OF TOTAL TIME I saw and evaluated the patient. I reviewed the resident?s note and agree with findings and plan as documented in the resident?s note. DKA, complicated by E. coli bacteremia and UTI. On appropriate antibiotics. DKA resolved. Patient was receiving 250 mL/h with dextrose and will also had full breakfast. Blood sugar increased after transitioning off insulin drip. Adjustments made in insulin regimen. Documentation for date of: 05/03/25 Subjective Subjective Interval history: Patient is 55 years old female with past medical history of COPD, type 2 diabetes mellitus and substance use disorder presented to the ED after she was seen by her PCP in clinic due to hyperglycemia. Patient reports she was feeling extremely weak and nauseous for the last several days, denies any vomiting. She was off her home medications for approximately 9 months because they were unable to refill it. Today she came to clinic for regular checkup and her blood glucose was high prompting her PCP sending her to the ED. She denies any fever, chills, chest pain, dysuria symptoms. She does not use oxygen for her COPD and never been prescribed. She previously was prescribed metformin and Rybelsus for her diabetes. She did not have any podiatry or ophthalmology checkup anytime recently. She uses methamphetamine for many years, last use 4 days ago. She smokes for approximately 45 years 1 pack a day. On arrival to the ED her blood pressure 106/61, pulse 110, respirations 20, and pressure 98.1 ?F, oxygen saturation 97% on room air. Labs showed WBCs 15.5, sodium 130, potassium 4.5, chloride 96, bicarb 18.1, anion gap 16, creatinine 1.1, glucose 569, lactic acid 1.6, BHB 5.4. ABG showed pH 7.37, PCO2 28, PO2 60. Urinalysis showed glucose 4+, ketones 3+, bacteria 1+. EKG showed sinus tachycardia. She was given 2 L of LR and 8 units of insulin in the ED. Patient was admitted to ICU for further management of DKA. PMH: COPD, type 2 diabetes mellitus and substance use disorder. PSH: Tonsillectomy. SH: Denies drinking alcohol. Smokes tobacco for 45+ years 1 pack a day. Uses methamphetamine several times a week, last use 4 days ago. FH: Unremarkable. Allergies: Penicillin. Medications: Metformin, Rybelsus, albuterol. 05/03/2025: Patient alert oriented x 3, anion gap closed x 2, electrolytes repleted per DKA protocol. Started on carb consistent low diet, Lantus 36 subcu x 1, insulin drip and fluids discontinued after 2 hours. ASCVD risk 20.5%, high intensity statin recommended, started on atorvastatin 40 at bedtime. TSH low, free T4 within normal limits. Started on step 3 sliding scale. Along with 8 units lispro AC. Will continue to monitor patient's blood glucose levels, will consider resuming insulin drip if remains significantly elevated. Exam Vital Signs Temp Pulse Resp BP Pulse Ox O2 Del Method 98.3 F 112 H 19 112/70 100 Room Air 05/03/25 08:00 05/03/25 09:00 05/03/25 09:00 05/03/25 09:00 05/03/25 09:00 05/03/25 08:00 Narrative Exam Gen: Well-developed female appears older than stated age. HEENT: NCAT, PERRLA, EOMI, MMM, anicteric conjunctivae, poor dentition. CVS: normal S1 and S2. Regular tachycardia. No M/R/G. Resp: Mild wheezing B/L. No rhonchi, rales, crackles. Abd: soft, obese, non-tender, non-distended. BS+ in all 4 quadrants. MSK: Good ROM in BUE & BLE. No rash. Trace pitting edema BLE. Neuro: CN II-XII grossly intact. Strength 5/5 in BUE & BLE. Alert and oriented x3. Objective Labs 05/03/25 05:16 05/03/25 12:59 Labs: Laboratory Results - last 24 hr 05/02/25 05/02/25 05/02/25 19:36 19:51 23:23 WBC 15.5 H RBC 4.92 Hgb 14.7 Hct 43.3 MCV 88 MCH 29.9 MCHC 33.9 RDW Std Deviation 40.6 Plt Count 257 Neut % (Auto) 78 Lymph % (Auto) 11 [place] % (Auto) 9 Eos % (Auto) 0 Baso % (Auto) 1 Neut # (Auto) 12.1 H Lymph # (Auto) 1.7 [place] # (Auto) 1.4 H Eos # (Auto) 0.0 Baso # (Auto) 0.1 Immature Gran # (Auto) 0.26 H Absolute Nucleated RBC 0.00 Immature Gran % 2 H Nucleated RBC % 0 Puncture Site Left Radial ABG pH 7.37 ABG pCO2 28 L ABG pO2 60 L ABG HCO3 16 L ABG O2 Saturation 91 ABG Base Excess -8 L VBG pH VBG pCO2 VBG pO2 VBG O2 Sat ([place]) VBG Base Excess FiO2 21 Sodium 130 L Potassium 4.5 Chloride 96 L Carbon Dioxide 18.1 L Anion Gap 16 BUN 14 Creatinine 1.1 Estim Creat Clear Calc 59.3 L eGFR 59 L BUN/Creatinine Ratio 13 Glucose 569 H* Estimated Ave Glu mg/dL Hemoglobin A1c Calculated Osmolality 287 Lactic Acid 1.6 Calcium 9.9 Corrected Calcium 9.9 Phosphorus 3.8 Magnesium 2.0 Total Bilirubin 0.3 AST < 8 ALT 11 Alkaline Phosphatase 99 Lactate Dehydrogenase Total Protein 6.6 Albumin 4.0 Globulin 2.6 Albumin/Globulin Ratio 1.5 Triglycerides Cholesterol LDL Cholesterol, Calc HDL Cholesterol Cholesterol/HDL Ratio Beta-Hydroxybutyrate/Acetoacetate 5.4 H TSH Free T4 Ur Collection Type Voided Urine Color Lt-Yellow Urine Clarity Clear Urine pH 6.0 Ur Specific [place] 1.033 Urine Protein Negative Urine Glucose (UA) 4+ A Urine Ketones 3+ A Urine Blood Negative Urine Nitrite Negative Urine Bilirubin Negative Urine Urobilinogen (Auto) Negative Ur Leukocyte Esterase Negative Urine RBC 2 Urine WBC 2 Ur Squamous Epith Cells < 1 Urine Bacteria 1+ A Urine Opiates Screen Urine Fentanyl Screen Ur Barbiturates Screen U Amphetamin/Meth Scrn U Benzodiazepines Scrn U Cocaine Metab Screen U Marijuana (THC) Screen 05/03/25 05/03/25 05/03/25 00:00 00:18 05:16 WBC 11.5 H RBC 4.43 Hgb 13.3 Hct 38.3 MCV 87 MCH 30.0 MCHC 34.7 RDW Std Deviation 39.8 Plt Count 192 D Neut % (Auto) 75 Lymph % (Auto) 16 [place] % (Auto) 7 Eos % (Auto) 1 Baso % (Auto) 0 Neut # (Auto) 8.6 H Lymph # (Auto) 1.8 [place] # (Auto) 0.8 Eos # (Auto) 0.1 Baso # (Auto) 0.1 Immature Gran # (Auto) 0.15 H Absolute Nucleated RBC 0.00 Immature Gran % 1 H Nucleated RBC % 0 Puncture Site ABG pH ABG pCO2 ABG pO2 ABG HCO3 ABG O2 Saturation ABG Base Excess VBG pH 7.43 VBG pCO2 34 L VBG pO2 48 VBG O2 Sat ([place]) 86 L VBG Base Excess -1 FiO2 Sodium 134 L 136 Potassium 3.7 D 3.8 Chloride 98 102 Carbon Dioxide 19.4 L 20.6 Anion Gap 17 H 13 BUN 13 9 Creatinine 1.0 0.7 Estim Creat Clear Calc 65.2 93.2 eGFR > 60 > 60 BUN/Creatinine Ratio 13 13 Glucose 303 H D [address] Glu mg/dL 355 H Hemoglobin A1c > 14.0 H Calculated Osmolality 279 274 L Lactic Acid 2.7 H Calcium 8.7 8.5 Corrected Calcium 9.2 9.1 Phosphorus 3.1 2.1 L Magnesium 1.6 1.7 Total Bilirubin AST ALT Alkaline Phosphatase Lactate Dehydrogenase 212 Total Protein Albumin 3.4 L D 3.2 L Globulin Albumin/Globulin Ratio Triglycerides 259 H Cholesterol 125 L LDL Cholesterol, Calc 63 HDL Cholesterol 10 L Cholesterol/HDL Ratio 12.5 H Beta-Hydroxybutyrate/Acetoacetate TSH 0.37 L Free T4 Cancelled 1.03 Ur Collection Type Urine Color Urine Clarity Urine pH Ur Specific [place] Urine Protein Urine Glucose (UA) Urine Ketones Urine Blood Urine Nitrite Urine Bilirubin Urine Urobilinogen (Auto) Ur Leukocyte Esterase Urine RBC Urine WBC Ur Squamous Epith Cells Urine Bacteria Urine Opiates Screen Negative Urine Fentanyl Screen Negative Ur Barbiturates Screen Negative U Amphetamin/Meth Scrn Negative U Benzodiazepines Scrn Negative U Cocaine Metab Screen Negative U Marijuana (THC) Screen Negative 05/03/25 09:32 WBC RBC Hgb Hct MCV MCH MCHC RDW Std Deviation Plt Count Neut % (Auto) Lymph % (Auto) [place] % (Auto) Eos % (Auto) Baso % (Auto) Neut # (Auto) Lymph # (Auto) [place] # (Auto) Eos # (Auto) Baso # (Auto) Immature Gran # (Auto) Absolute Nucleated RBC Immature Gran % Nucleated RBC % Puncture Site ABG pH ABG pCO2 ABG pO2 ABG HCO3 ABG O2 Saturation ABG Base Excess VBG pH 7.51 VBG pCO2 29 L VBG pO2 42 VBG O2 Sat ([place]) 83 L VBG Base Excess 1 FiO2 Sodium Potassium Chloride Carbon Dioxide Anion Gap BUN Creatinine Estim Creat Clear Calc eGFR BUN/Creatinine Ratio Glucose Estimated Ave Glu mg/dL Hemoglobin A1c Calculated Osmolality Lactic Acid 3.4 H Calcium Corrected Calcium Phosphorus Magnesium Total Bilirubin AST ALT Alkaline Phosphatase Lactate Dehydrogenase Total Protein Albumin Globulin Albumin/Globulin Ratio Triglycerides Cholesterol LDL Cholesterol, Calc HDL Cholesterol Cholesterol/HDL Ratio Beta-Hydroxybutyrate/Acetoacetate TSH Free T4 Ur Collection Type Urine Color Urine Clarity Urine pH Ur Specific [place] Urine Protein Urine Glucose (UA) Urine Ketones Urine Blood Urine Nitrite Urine Bilirubin Urine Urobilinogen (Auto) Ur Leukocyte Esterase Urine RBC Urine WBC Ur Squamous Epith Cells Urine Bacteria Urine Opiates Screen Urine Fentanyl Screen Ur Barbiturates Screen U Amphetamin/Meth Scrn U Benzodiazepines Scrn U Cocaine Metab Screen U Marijuana (THC) Screen ABG Interpretation ABG results: 05/02/25 05/03/25 05/03/25 23:23 05:16 09:32 ABG pH 7.37 ABG pCO2 28 L ABG pO2 60 L ABG HCO3 16 L ABG O2 Saturation 91 ABG Base Excess -8 L VBG pH 7.43 7.51 VBG pCO2 34 L 29 L VBG pO2 48 42 VBG Base Excess -1 1 Quality Measures Quality Measures VTE prophylaxis Assessment & Plan Assessment Current Active Medications: Generic Name Dose Route Start Last Admin Trade Name Freq PRN Reason Stop Dose Admin Albuterol/Ipratropium 3 ml 05/02/25 23:51 Albuterol/Ipratropium (Duoneb) Rt [place] 3 Ml Nebu INH 06/01/25 23:50 Q2HR PRN SHORTNESS OF BREATH OR WHEEZE Dextrose 25 ml 05/02/25 23:51 Dextrose 50%-Water Inj 50 Ml Syringe IV [id number] PRN Blood Sugar - Low Dextrose 25 ml 05/03/25 08:44 Dextrose 50%-Water Inj 50 Ml Syringe IV 06/02/25 08:43 Q15MIN PRN BG 50-70 responsive npo pt Dextrose 50 ml 05/03/25 08:44 Dextrose 50%-Water Inj 50 Ml Syringe IV 06/02/25 08:43 Q15MIN PRN BG <50 OR BG <70 & pt unresponsive Enoxaparin Sodium 40 mg 05/03/25 09:00 05/03/25 08:00 Enoxaparin Sod Inj 40 Mg/0.4 Ml Syringe SC 05/17/25 08:59 40 mg QDAY GUERLINE Administration Glucagon 1 mg 05/03/25 08:44 Glucagon Inj 1 Mg Vial IM Q15MIN PRN BG <70, and no IV access Potassium Chloride 10 meq in 100 mls @ 100 mls/hr 05/02/25 23:51 05/03/25 05:00 Kcl Ivpb IV 06/01/25 23:50 Infused .Q1H PRN Infusion IF POTASSIUM LESS THAN 3.3 Magnesium Sulfate 2 gm in 50 mls @ 25 mls/hr 05/02/25 23:51 05/03/25 08:01 Magnesium Sulfate Ivpb IV 06/01/25 23:50 25 mls/hr .Q2H PRN Administration PER DKA PROTOCOL Insulin Human Regular 100 unit 100 mls @ 7.893 mls/hr 05/02/25 23:51 05/03/25 09:00 / IV Miscellaneous Supplies IV 06/01/25 23:50 0.05 unit/kg/hr .[id number] PRN 3.946 mls/hr PER PROTOCOL Titration Protocol 0.1 UNIT/KG/HR Lactated Ringer's 1,000 mls @ 250 mls/hr 05/02/25 23:51 05/03/25 05:00 Lactated Ringers IV 05/03/25 23:50 0 mls/hr .Q4H PRN Infusion PER PROTOCOL Potassium Chloride 20 meq/ 1,010 mls @ 250 mls/hr 05/02/25 23:51 Lactated Ringer's IV 06/01/25 23:50 .Q4H3M PRN K LEVEL 3.3 TO 5.3mM/L Potassium Chloride 40 meq/ 1,020 mls @ 250 mls/hr 05/02/25 23:51 Lactated Ringer's IV 06/01/25 23:50 .Q4H5M PRN K LEVEL < 3.3 mM/L Potassium Chloride 40 meq/ 1,020 mls @ 250 mls/hr 05/02/25 23:51 Dextrose/Lactated Ringer's IV 06/01/25 23:50 .Q4H5M PRN K LEVEL < 3.3mM/L Potassium Cl/Dextrose/Lact Ringer's 20 meq in 1,000 mls @ 250 mls/hr 05/02/25 23:51 05/03/25 09:10 Kcl 20 Meq/L In D5-Lr IV 06/01/25 23:50 150 mls/hr .Q4H PRN Administration K LEVEL 3.3 TO 5.3 mM/L Potassium Chloride 10 meq in 100 mls @ 50 mls/hr 05/02/25 23:51 05/03/25 03:00 Kcl Ivpb IV 06/01/25 23:50 Infused PRN PRN Infusion K LEVEL 3.3 to 5.3 & BG > 200 Potassium Phosphate 15 mmol in 250 mls @ 62.5 mls/hr 05/02/25 23:51 Pot Phos 15 Mmol In Ns 250 Ml IV 06/01/25 23:50 PRN PRN Phosphate <= 1mg/dL Sodium Phosphate 15 mmol/ 255 mls @ 62.5 mls/hr 05/02/25 23:51 Sodium Chloride IV 06/01/25 23:50 .Q4H5M PRN Phosphate <= 1mg/dL and K> than 5.3 Dextrose/Lactated Ringer's 1,000 mls @ 250 mls/hr 05/03/25 00:27 D5-Lr IV 06/01/25 23:50 .Q4H PRN PER PROTOCOL Insulin Human Lispro 0 unit 05/03/25 11:30 Insulin Lispro (Admelog) 1 Unit/0.01 Ml Unit SC 06/02/25 11:29 ACHS GUERLINE Protocol Nicotine 21 mg 05/03/25 09:00 05/03/25 08:00 Nicotine Patch 21 Mg/24 Hr Patch.Td24 TOP 06/02/25 08:59 21 mg QDAY GUERLINE Administration Pantoprazole Sodium 40 mg 05/03/25 09:00 05/03/25 08:57 Pantoprazole Inj 40 Mg Vial IVP 06/02/25 08:59 40 mg QDAY GUERLINE Administration Potassium Phos/Sodium Phos 1 packet 05/03/25 09:00 05/03/25 08:57 Naph,Kph Mbdb 1 Packet (1.5 Gm) PO 05/04/25 09:01 1 packet BID GUERLINE Administration Sodium Bicarbonate 50 ml 05/02/25 23:51 Sodium Bicarb Inj 8.4% Syr 50 Ml Syringe IV 06/01/25 23:50 Q4HR PRN For ph <= to 7.0 Plan Patient is 55 years old female with past medical history of COPD, type 2 diabetes mellitus and substance use disorder presented to the ED after she was seen by her PCP in clinic due to hyperglycemia and was admitted to ICU for further management of DKA. Neuro: No active problem. Cardiovascular: #Noncardiac chest pain Differential diagnosis: GERD, musculoskeletal, costochondritis Diagnostic workup: - EKG shows no acute ST-T changes, repeat EKG shows no dynamic EKG changes - Describes it as a chest pain due to positioning Treatment: - IV Protonix daily - Maalox as needed Follow-up: - Monitor for chest pain #Dyslipidemia Diagnostic workup: - Triglyceride 259, cholesterol 125, LDL 63, HDL 10, ASCVD risk 20.5%, high intensity statin recommended Treatment: -Started on atorvastatin 40 mg at bedtime Follow-up: - Follow-up outpatient Respiratory: #COPD, by history #Active tobacco smoking status. Diagnostic workup: -Patient reports smoking tobacco for 45+ years 1 pack a day, uses albuterol as needed for wheezing, never been prescribed home oxygen. -Denies undergoing PFTs outpatient ever. Treatment: -DuoNebs every 2 hours as needed -Chest x-ray negative -Supplemental oxygen as needed -Nicotine patch daily as needed Follow-up: - Monitor respiratory status Gastrointestinal: Diet: Carb consistent low GI prophylaxis: IV Protonix Renal: # Acute kidney injury, resolved Differential diagnosis: Prerenal, in setting of distal Diagnostic workup: -On presentation creatinine 1.1, baseline creatinine 0.6/0.7, GFR 59, BUN 14 on presentation Treatment: -IV fluids per DKA protocol Follow-up: - Follow-up renal panel #Lactic acidosis Differential diagnosis: In setting of GNR bacteremia versus DKA Diagnostic workup: - Lactate 2.7 on presentation, up trended to 3.4 Treatment: -Fluids per DKA protocol -500 cc NS bolus Follow-up: - Follow-up lactate Endocrine: #Diabetic ketoacidosis. #[id number] type 2 diabetes mellitus. Diagnostic workup: -DKA likely secondary to poor outpatient management of diabetes -Patient was having significant weakness and nausea for the last several days and was sent to the ED by her PCP due to hyperglycemia. -Labs showed bicarb 18.1, anion gap 16, glucose 569, BHB 5.4. ABG showed pH 7.37, PCO2 28, PO2 60. -Hemoglobin A1c greater than 14 Treatment: -Holding insulin drip for now, patient started on oral feeding -Was given 36 units of Lantus x 1 -Started on 8 units of lispro with step 3 sliding scale -If fingersticks continue to remain high, will consider starting again on insulin drip Follow-up: - Follow renal panel 1630 - Monitor fingerstick blood glucose - Patient was to follow-up at [facility] Infectious Disease: #1/2 GNR bacteremia #Urinary tract infection Differential diagnosis: Contamination, asymptomatic bacteriuria Diagnostic workup: -Urinalysis showed 1+ bacteria, leukocyte esterase negative -1/2 blood cultures show prelim GNR bacteremia, likely source UA Treatment: -Started on ceftriaxone 2 g every 24 hours Follow-up: - Follow-up blood cultures and speciation - Follow urine culture Hematology/Oncology: #Leukocytosis, resolving Differential diagnosis: Reactive, in setting of infection Diagnostic workup: -Does have GNR bacteremia, urine bacteria positive -Possibly reactive in setting of DKA Treatment: -Continue IV antibiotics, IV fluids Follow-up: On admission patient's WBC is 15.5. Patient denies any fever, chills, upper respiratory infection symptoms, dysuria symptoms. Her urinalysis showed 1+ bacteria but no WBCs or leukocyte esterase. At this moment no signs of infection were found, will continue to monitor without antibiotics. Chest x-ray was ordered. Diet: Carb consistent low Lines: peripheral x2. DVT prophylaxis: Lovenox. GI prophylaxis: IV Protonix Code status: Full code Disposition: ICU, High Blood Glucose Case discussed with Attending Dr. Meng. Sue Reina MD Internal Medicine Resident PGY2 Disclaimer: This note was dictated by speech recognition. Minor errors in security operations center analyst may be present due to voice recognition software.
[2025-05-03 10:14] LABS: Albumin, Serum 3.3 gm/dL (3.5-5.0); Anion Gap 10 (7-16); BUN/Creatinine Ratio 13 Ratio (12-20); Blood Urea Nitrogen 8 mg/dL (9-23); Calcium 8.5 mg/dL (8.3-10.6); Calcium (Corrected) 9.1 mg/dL (8.5-10.1); Carbon Dioxide 24.0 mMol/L (20.0-31.0); Chloride 101 mMol/L (98-107); Creatinine (Component) 0.6 mg/dL (0.6-1.3); Estimated Creatinine Clearance 108.6 mL/min (>60); Glucose 268 mg/dL (74-106); Osmolality,Calculated 277 (275-295); Phosphorous 1.5 mg/dL (2.4-5.1); Potassium 3.8 mMol/L (3.4-5.1); Sodium 135 mMol/L (136-145); eGFR > 60 See Note
[2025-05-03] MEDS: INSULIN LISPRO (AdmeLOG) 1 UNIT/0.01 ML UNIT 10 UNIT SC (10:24)
[2025-05-03] MEDS: POT CHL ADDITIVE 20 MEQ in RINGERS LACTATED 1000 ML 1,000 ML 250 MEQ IV (10:38)
[2025-05-03] MEDS: cefTRIAXone 2 GM in SODIUM CHLORIDE 0.9% (Popper) 50 ML IV (11:10)
[2025-05-03] MEDS: INSULIN LISPRO (AdmeLOG) 1 UNIT/0.01 ML UNIT SC ×3 (11:17→20:48)
[2025-05-03] MEDS: POT PHOS 15 mMol in NS 250 ML 15 MMOL/250 ML BAG 62.5 MMOL IV (11:17)
[2025-05-03 13:09] LABS: Base Excess, Venous -2 (-3-3); Lactate (Lactic Acid) 2.4 mMol/L (0.4-2.0); O2 Saturation, Venous 79 % (96-97); PCO2, Venous 38 mmHg (36-56); PO2, Venous 41 mmHg (15-58); pH, Venous 7.39 (7.33-7.66)
[2025-05-03 13:42] LABS: Albumin, Serum 3.3 gm/dL (3.5-5.0); Anion Gap 11 (7-16); BUN/Creatinine Ratio 13 Ratio (12-20); Blood Urea Nitrogen 9 mg/dL (9-23); Calcium 8.4 mg/dL (8.3-10.6); Calcium (Corrected) 9.0 mg/dL (8.5-10.1); Carbon Dioxide 21.7 mMol/L (20.0-31.0); Chloride 98 mMol/L (98-107); Creatinine (Component) 0.7 mg/dL (0.6-1.3); Estimated Creatinine Clearance 93.1 mL/min (>60); Glucose 321 mg/dL (74-106); Magnesium 1.9 mg/dL (1.6-2.6); Osmolality,Calculated 273 (275-295); Phosphorous 2.7 mg/dL (2.4-5.1); Potassium 4.0 mMol/L (3.4-5.1); Sodium 131 mMol/L (136-145); eGFR > 60 See Note
[2025-05-03] MEDS: SODIUM CHLORIDE 0.9% 500 ML 500 ML 999 ML IV ×2 (15:15→22:07)
--- NOTE | 2025-05-03 15:17 | PC.SS ---
VENIPUNCTURIST conducted bedside contact with the patient conduct initial assessment and to discuss discharge planning.? Patient confirmed demographic information.? Patient resides at home with daughter, LEONARDO Gibbs .? Patient does not utilize any form of DME to assist with ambulation.? Patient does not utilize home oxygen.? Patient states need for assistance to complete ADL?s.? Patient identified daughter, Trinidad Suarez ; as surrogate medical decision maker.? Patient?s PCP is [facility].? Patient does not possess any specialty providers.? Patient utilizes [facility] for medication services.? Patient possesses history of diabetes, insulin dependent.? Discussed discharge plan.? Patient requesting rollating walker to assist with ambulation due to presence of generalized weakness.? Informed patient that PT evaluation would need to confirm recommendation of DME request.? VENIPUNCTURIST discussed with patient SNF placement if PT evaluation recommends facility placement.? Patient receptive to short term SNF if recommended.? No preferred SNF identified.? If home health is the recommendation, no preferred agency identified.? VENIPUNCTURIST to submit SS referral on behalf the patient.? visitor services assistant to assist the patient with transportation services upon discharge.? Patient possesses coverage for transportation services through insurance.? No further discharge needs identified by the patient.? No further intervention required at this time, group social worker will be available to address any further concerns.? Next of Kin: Trinidad Erick D/C Plan: Home
--- NOTE | 2025-05-03 15:30 | PC.SS ---
[facility] referral submitted on behalf of the patient. Referral faxed to [phone]. Copy of referral placed in the patient's chart.
[2025-05-03 16:05] LABS: Reflex Lactate? Y
--- NOTE | 2025-05-03 17:02 | PC.NURSE ---
Dr. Reina notified of no BM for about a week per pt, orders received for bowel regimen, pt refusing medications, education complete, pt continues to refuse, Dr. Reina notified
[2025-05-03 17:03] LABS: Base Excess, Venous 0 (-3-3); O2 Saturation, Venous 96 % (96-97); PCO2, Venous 31 mmHg (36-56); PO2, Venous 91 mmHg (15-58); pH, Venous 7.47 (7.33-7.66)
[2025-05-03 17:05] LABS: Lactate (Lactic Acid) 1.8 mMol/L (0.4-2.0)
[2025-05-03] MEDS: INSULIN LISPRO (AdmeLOG) 1 UNIT/0.01 ML UNIT 8 UNIT SC (17:31)
[2025-05-03 17:42] LABS: Albumin, Serum 2.9 gm/dL (3.5-5.0); Anion Gap 9 (7-16); BUN/Creatinine Ratio 15 Ratio (12-20); Blood Urea Nitrogen 9 mg/dL (9-23); Calcium 7.8 mg/dL (8.3-10.6); Calcium (Corrected) 8.7 mg/dL (8.5-10.1); Carbon Dioxide 20.9 mMol/L (20.0-31.0); Chloride 102 mMol/L (98-107); Creatinine (Component) 0.6 mg/dL (0.6-1.3); Estimated Creatinine Clearance 106.3 mL/min (>60); Glucose 274 mg/dL (74-106); Magnesium 1.8 mg/dL (1.6-2.6); Osmolality,Calculated 273 (275-295); Phosphorous 2.8 mg/dL (2.4-5.1); Potassium 3.8 mMol/L (3.4-5.1); Sodium 132 mMol/L (136-145); eGFR > 60 See Note
--- NOTE | 2025-05-03 17:42 | PC.DIETICIAN ---
Nutrition Education (DKA; A1C>14): Patient was educated on dietary management of diabetes; written material was provided for future reference. *Consider prescribing a GigaBryteStyle Lidia 3 Plus sensor and [place] if discharged on insulin.
[2025-05-03] MEDS: ATORVASTATIN CALCIUM 20 MG TABLET 40 MG PO (20:47)
[2025-05-03 20:55] LABS: Base Excess, Venous 1 (-3-3); O2 Saturation, Venous 88 % (96-97); PCO2, Venous 34 mmHg (36-56); PO2, Venous 51 mmHg (15-58); pH, Venous 7.46 (7.33-7.66)
[2025-05-03 20:57] LABS: Lactate (Lactic Acid) 2.4 mMol/L (0.4-2.0)
[2025-05-03 21:26] LABS: Albumin, Serum 2.9 gm/dL (3.5-5.0); Anion Gap 8 (7-16); BUN/Creatinine Ratio 15 Ratio (12-20); Blood Urea Nitrogen 9 mg/dL (9-23); Calcium 8.0 mg/dL (8.3-10.6); Calcium (Corrected) 8.9 mg/dL (8.5-10.1); Carbon Dioxide 23.4 mMol/L (20.0-31.0); Chloride 103 mMol/L (98-107); Creatinine (Component) 0.6 mg/dL (0.6-1.3); Estimated Creatinine Clearance 106.3 mL/min (>60); Glucose 208 mg/dL (74-106); Magnesium 1.6 mg/dL (1.6-2.6); Osmolality,Calculated 272 (275-295); Phosphorous 2.4 mg/dL (2.4-5.1); Potassium 3.7 mMol/L (3.4-5.1); Sodium 134 mMol/L (136-145); eGFR > 60 See Note
[2025-05-03 23:52] LABS: Reflex Lactate? Y
[2025-05-04] VITALS (8 sets, daily range): BP systolic 102–136; BP diastolic 79–84; PULSE 87–104; RESP 16–97; TEMP 36.3–36.7; O2SAT 94–99
--- NOTE | 2025-05-04 00:20 | PC.NURSE ---
Pt arrived to unit via w/c. GCS 15, on room air, denies pain and nausea at this time, ambultory, IV patent, bed alarm activated for safety, refreshments provided. Pt alert & oriented x4. Pt verbalized understanding to fall interventions.
[2025-05-04 00:31] LABS: Lactic Acid, 3 HR 1.3 mMol/L (0.4-2.0)
[2025-05-04] MEDS: ACETAMINOPHEN 325 MG TABLET PO (04:16)
[2025-05-04 06:20] LABS: Lactate (Lactic Acid) 1.1 mMol/L (0.4-2.0)
[2025-05-04 06:24] LABS: Basophils # (Auto) 0.0 Thou/mm3 (0.0-0.2); Basophils % (Auto) 0 % (0-2.5); Eosinophils # (Auto) 0.1 Thou/mm3 (0.0-0.5); Eosinophils % (Auto) 1 % (0-10); Hematocrit 35.7 % (36.0-46.0); Hemoglobin 12.7 g/dL (12.0-16.0); Immature Granulocytes Auto 0.16 Thou/mm3 (0.00-0.00); Lymphocytes # (Auto) 2.0 Thou/mm3 (1.0-4.8); Lymphocytes % (Auto) 15 % (10-50); Mean Corpuscular HGB Conc 35.6 g/dl (31.0-37.0); Mean Corpuscular Hemoglobin 29.6 pg (25.0-35.0); Mean Corpuscular Volume 83 fL (80-100); Monocytes # (Auto) 1.3 Thou/mm3 (0.0-0.8); Monocytes % (Auto) 9 % (0-12); Neutrophils # (Auto) 9.8 Thou/mm3 (1.8-7.7); Neutrophils % (Auto) 74 % (37-80); Nucleated Red Blood Cell # 0.00 Thou/mm3 (0.00-0.00); Nucleated Red Blood Cell % 0 /100 WBC (0); Platelet Count 200 Thou/mm3 (140-440); RDW Standard Deviation 38.9 fL (36.4-46.3); Red Blood Count 4.29 Miln/mm3 (4.00-5.20); White Blood Count 13.3 Thou/mm3 (3.6-11.0)
[2025-05-04 07:02] LABS: Magnesium 1.9 mg/dL (1.6-2.6); Phosphorous 2.9 mg/dL (2.4-5.1)
[2025-05-04] MEDS: INSULIN LISPRO (AdmeLOG) 1 UNIT/0.01 ML UNIT 8 UNIT SC (08:20)
[2025-05-04] MEDS: INSULIN LISPRO (AdmeLOG) 1 UNIT/0.01 ML UNIT SC ×3 (08:20→18:05)
[2025-05-04] MEDS: cefTRIAXone 2 GM in SODIUM CHLORIDE 0.9% (Popper) 50 ML IV (08:33)
[2025-05-04] MEDS: ENOXAPARIN SOD INJ 40 MG/0.4 ML SYRINGE SC (08:33)
[2025-05-04] MEDS: NAPH,KPH MBDB 1 PACKET (1.5 GM) PO (08:34)
[2025-05-04] MEDS: NICOTINE PATCH 21 MG/24 HR PATCH.TD24 TOP (08:34)
[2025-05-04] MEDS: INSULIN GLARGINE (Lantus) 5 UNIT/0.05 ML (PER 5 UNITS) 42 UNIT SC (08:35)
[2025-05-04 09:14] LABS: Beta Hydroxybutyrate 1.1 mmol/L (<0.6)
[2025-05-04] MEDS: POLYETHYLENE GLYCOL 17 GM PACKET PO (09:50)
[2025-05-04 10:15] LABS: Albumin, Serum 3.0 gm/dL (3.5-5.0); Anion Gap 9 (7-16); BUN/Creatinine Ratio 17 Ratio (12-20); Blood Urea Nitrogen 10 mg/dL (9-23); Calcium 8.1 mg/dL (8.3-10.6); Calcium (Corrected) 8.9 mg/dL (8.5-10.1); Carbon Dioxide 25.0 mMol/L (20.0-31.0); Chloride 101 mMol/L (98-107); Creatinine (Component) 0.6 mg/dL (0.6-1.3); Estimated Creatinine Clearance 106.2 mL/min (>60); Glucose 319 mg/dL (74-106); Osmolality,Calculated 281 (275-295); Phosphorous 2.9 mg/dL (2.4-5.1); Potassium 3.8 mMol/L (3.4-5.1); Sodium 135 mMol/L (136-145); eGFR > 60 See Note
[2025-05-04] MEDS: INSULIN LISPRO (AdmeLOG) 1 UNIT/0.01 ML UNIT 10 UNIT SC ×2 (12:30→18:06)
--- NOTE | 2025-05-04 12:49 | PC.PT ---
Patient was approached for PT eval at 10:30. Patient was ambulating back to bed from the bathroom with no AD and no RN assist. Patient reported she felt safe ambulating on her own. Patient is ambulatory and not a candidate for skilled PT intervention at this time. Will cancel PT eval. Patient is requesting a rollator walker for home ambulation to take rest breaks. SW made aware.
--- NOTE | 2025-05-04 13:26 | ESDS_ITS ---
<Statement entered by Justin Dozier MD - 05/15/25 14:15> I reviewed above note and agree with findings and plans. I have also personally examined the patient with medicine team and went over assessment and plan with medical team including internet architect and resident physician. Planned Discharge Date 05/04/25 DS: Providers Provider Date of admission: 05/02/25 23:51 Primary care physician: Physician No Primary/Family Admitting Provider: Duc Barajas DO Attending Provider on Admission: Duc Barajas DO Consults: 05/02/25 23:54 Referral Registered Dietitian Routine Comment: 05/03/25 08:47 Referral Registered Dietitian Routine Comment: Attending Provider on DC: RESIDENT Laura Discharging Provider: RESIDENT Laura DS: Diagnosis Problem List Completed Was Problem List Reviewed/Reconciled?: Yes Hospital Course Hospital Course Hospital course: Patient is 55 years old female with past medical history of COPD, type 2 diabetes mellitus and substance use disorder presented to the ED after she was seen by her PCP in clinic due to hyperglycemia and was admitted to ICU for further management of DKA. ED Course: On arrival to the ED her blood pressure 106/61, pulse 110, respirations 20, and pressure 98.1 ?F, oxygen saturation 97% on room air. Labs showed WBCs 15.5, sodium 130, potassium 4.5, chloride 96, bicarb 18.1, anion gap 16, creatinine 1.1, glucose 569, lactic acid 1.6, BHB 5.4. ABG showed pH 7.37, PCO2 28, PO2 60. Urinalysis showed glucose 4+, ketones 3+, bacteria 1+. EKG showed sinus tachycardia. She was given 2 L of LR and 8 units of insulin in the ED. Patient was admitted to ICU for further management of DKA. Hospital Course: Upon admission to ICU, patient started on insulin drip, LR 250 cc/h, and electrolytes correction per DKA protocol. Renal panel and VBG was taken every 4 hrs. Was given breathing treatments with DuoNebs, and supplemental oxygen for patient's COPD. Patient was given ceftriaxone 2g IV qd for her E.coli bacteremia and UTI. Patient alert oriented x 3, anion gap closed x 2, electrolytes repleated per DKA protocol. Started on carb consistent low diet, Lantus 36 subcu x 1, insulin drip and fluids discontinued after 2 hours. ASCVD risk 20.5%, high intensity statin recommended, started on atorvastatin 40 at bedtime. TSH low, free T4 within normal limits. Started on step 3 sliding scale. Along with 8 units lispro AC. Patient has been discharged with Glargine 30 units bid, Blood-glucose meter and glucose test strips. #Diabetic ketoacidosis. #Zmr-[id number] type 2 diabetes mellitus. #1/2 GNR bacteremia #Urinary tract infection # Acute kidney injury, resolved #Lactic acidosis #Leukocytosis #COPD, by history #Active tobacco smoking status. #Dyslipidemia #Noncardiac chest pain Instructions: -Please take Glargine 30 units twice daily for your diabetes -Please check morning glucose, goal between 80-130. Please keep sugar levels under 200 with meals. -Please follow up with your primary care provider within one week of discharge -If your symptoms worsen,please seek immediate medical attention and return to your nearest emergency room -If you do not have a primary care provider, you may follow up at the [facility] at [address] [place] [address] [address], [place] [address], Safe to discharge to Home Assessment and plan discussed with my attending physician Dr. Dozier and Dr. Gonzalez (PGY-2) Dr. Harris (PGY-1)- Internal medicine resident - The patient's plan was discussed with attending Dr. Tasia Gonzalez MD PGY2 Internal Medicine Time Spent with Patient Time attestation: Total time spent providing and/or coordinating discharge services: Time spent: Greater than 30 minutes Exam Vital Signs Temp Pulse Resp BP Pulse Ox O2 Del Method 97.4 F 88 20 116/80 97 Room Air 05/04/25 12:05/04/25 12:05/04/25 12:05/04/25 12:00 05/04/25 12:05/04/25 12:00 Narrative Exam General: No acute distress, well nourished Eye: PERRL, EOMI, normal conjunctiva, no scleral icterus HENT: Normocephalic, atraumatic, hearing intact to conversation at normal volume, moist oral mucosa Neck: Supple, non-tender, no JVD, no lymphadenopathy Lungs: Non-labored respirations, symmetric chest rise, Clear to auscultate bilaterally Heart: Peripheral pulses intact bilaterally Abdomen: Soft, non-tender, non-distended Musculoskeletal: Normal range of motion and strength Skin: Skin is warm, dry, no rashes or lesions. Psychiatric: Cooperative, appropriate mood and affect Neuro: Cranial nerves II-XII grossly intact. Strength 5/5 throughout. Sensations intact to light touch. Discharge Plan Plan Patient Disposition: HOME (Self Care) Patient condition on transfer: Stable Care Plan Goals: Instructions: -Please take Glargine 30 units twice daily for your diabetes -Please check morning glucose, goal between 80-130. Please keep sugar levels under 200 with meals. -Please follow up with your primary care provider within one week of discharge -If your symptoms worsen,please seek immediate medical attention and return to your nearest emergency room -If you do not have a primary care provider, you may follow up at the [facility] at [facility] [address], [place] [address], Prescriptions/Referrals Prescriptions/Med Rec: New atorvastatin 40 mg tablet 40 mg PO QPM 30 Days Qty: 30 0RF (DME) blood-glucose meter [Accu-Chek Guide Glucose Meter] [facility] See Rx Instructions .Route Qty: 1 0RF Rx Instructions: As directed (DME) Accutrend Glucose test strips Strip See Rx Instructions .Route Qty: 50 0RF Rx Instructions: As directed nicotine 21-14-7 mg/24 hr patch, TD daily, sequential 56 patch topical 11XD Qty: 56 0RF (DME) pen needle, diabetic 29 gauge needle See Rx Instructions .Route Qty: 100 0RF Rx Instructions: As directed insulin glargine 100 unit/mL (3 mL) insulin pen 30 unit subcut BID 30 Days Qty: 15 1RF (DME) lancets 30 gauge [facility] [place] See Rx Instructions .Route Qty: 100 0RF Rx Instructions: As directed Referrals: [facility] [Outside] No Primary/Family,Physician [Primary Care Provider] - Patient/Caregiver Discharge Instructions Education Materials: Diabetes and Heart Disease, Diabetes Shopping Preparing Meals, Diabetes Exercise Get Started, Diabetes- Measuring Glucose at Home Print Language: Monegasque Stand Alone Forms: Nelia Award Info., Patient Portal Info Letter Discharge Order Discharge Orders: Discharge (Routine); Ordered 05/04/25 Ordered By: Migdalia Gonzalez Quality Discharge Quality Measures VTE prophylaxis
--- NOTE | 2025-05-04 14:47 | PC.NURSE ---
Delayed discharge due to blood sugars. Per Ferdinand, I was to wait til pt's bs was below 200. it is now but now pt is hving a hard time getting her medications from the pharmacy so I am going to try to help with that
--- NOTE | 2025-05-04 16:18 | PC.SS ---
Addendum entered by Phyllis Navarrete 05/04/25 16:26: SS received call from Margarita at [facility] they can accept pt and deliver rollator walker to patient's home Original Note: SS received call from [employer] who explained pt is independent but is requesting a walker. SS has sent DME order for 4 wheel with seat, rollator walker using [employer].
== END 2025-05-04 18:20 | disposition home or self-care (01) | DRG 420 ==
LOC: SERX 23:40 → S2SX 05-03 09:47 → S3SX 05-04 12:31 → SERHOLD 05-05 08:13 → S3SX 05-05 08:14 → S2SX 05-05 08:14
PROVIDERS: Internal Medicine; Student in an Organized Health Care Education/Training Program; Admitting Provider Student in an Organized Health Care Education/Training Program; Emergency Provider Emergency Medicine; Visit Provider Student in an Organized Health Care Education/Training Program
DX: E11.10 Type 2 diabetes mellitus with ketoacidosis without coma (principal); J44.9 Chronic obstructive pulmonary disease, unspecified; F15.90 Other stimulant use, unspecified, uncomplicated; D72.829 Elevated white blood cell count, unspecified; F17.210 Nicotine dependence, cigarettes, uncomplicated; E11.40 Type 2 diabetes mellitus with diabetic neuropathy, unspecified; E78.5 Hyperlipidemia, unspecified; N17.9 Acute kidney failure, unspecified; N39.0 Urinary tract infection, site not specified; Z79.4 Long term (current) use of insulin; Z91.199 Patient's noncompliance with other medical treatment and regimen due to unspecified reason; B96.20 Unspecified Escherichia coli [E. coli] as the cause of diseases classified elsewhere; Z88.0 Allergy status to penicillin
CPT/HCPCS: 36415; 36600; 71045; 80053; 80061; 80069; 80307; 81001; 82010; 82803; 83036; 83605; 83615; 83735; 84100; 84439; 84443; 85025; 87040; 87077; 87081; 87086; 87106; 87186; 87811; 93005; 93225; 96361; 96365; 96366; 96372; G0378; J0696; J1650; J1815; J2470; J3475; J3480; J7050; J7120; J7999; A9270

== ENCOUNTER 2025-05-08 08:42 | Outpatient (AMB) | payer MEDICAID, SELFPAY ==
[2025-05-08 08:57] VITALS: BP 128/81; PULSE 91; RESP 19; TEMP 36.8; O2SAT 96; BMI 31.6
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
== END 2025-05-08 09:35 | disposition home or self-care (01) ==
LOC: HODAHC 08:42
PROVIDERS: Supervising Provider Internal Medicine
DX: E11.10 Type 2 diabetes mellitus with ketoacidosis without coma (principal); Z79.4 Long term (current) use of insulin; L24.9 Irritant contact dermatitis, unspecified cause
CPT/HCPCS: 99213; G0463

== ENCOUNTER 2025-05-17 09:16 | Outpatient (AMB) | payer MEDICAID, SELFPAY ==
--- NOTE | 2025-05-17 09:35 | ACNOTE_ITS ---
Vital Signs 05/17/25 09:36 Height 1.63 m Height Method Stated Weight 81.363 kg Weight Measurement Method Standing Scale BMI 30.6 BP 102/68 Blood Pressure Source Automatic Cuff Blood Pressure Location Right Upper Arm Position Sitting Respiration 18 Pulse 90 Pulse Source Monitor Temp 98.2 F Temp Source Temporal Artery Scan Pulse Oximetry (%) 96 Oxygen Delivery Method Room Air Allergies/Meds Allergies & Medications Allergies Penicillins Allergy (Severe, Verified 05/17/25 09:36) Swelling of Lip/Tongue/Throat Medication Reconciliation atorvastatin 40 mg tablet 40 mg PO QPM 1 month #30 tabs 05/04/25 [Rx Confirmed 05/17/25] blood-glucose meter (Accu-Chek Guide Glucose Meter) #1 ea 05/04/25 [Rx Confirmed 05/17/25] insulin glargine 100 unit/mL (3 mL) subcutaneous pen 30 unit (0.3 mL) subcut BID 1 month #15 mL 05/04/25 [Rx Confirmed 05/17/25] lancets 30 gauge #100 ea 05/04/25 [Rx Confirmed 05/17/25] nicotine 21mg/24hr-14mg/24hr-7mg/24hr daily transderm patches,sequentl 56 patch topical 11XD #56 patches 05/04/25 [Rx Confirmed 05/17/25] pen needle, diabetic 29 gauge #100 ea 05/04/25 [Rx Confirmed 05/17/25] zinc oxide 5 % topical cream 1 applic topical BID #177.4 mL 05/08/25 [Rx Con firmed 05/17/25] acetaminophen 500 mg tablet (Tylenol Extra Strength) 1,000 mg (2 x 500 mg) PO TID PRN pain #180 tabs 05/17/25 [Rx] blood sugar diagnostic (Accu-Chek Guide test strips) #100 ea 05/17/25 [Rx] ibuprofen 800 mg tablet 800 mg PO TID PRN pain #90 tabs 05/17/25 [Rx] insulin lispro 100 unit/mL subcutaneous pen See Rx Instructions subcut .COMPLEX #15 mL 05/17/25 [Rx] pregabalin 75 mg capsule (Lyrica) 75 mg PO BID #60 caps 05/17/25 [Rx] semaglutide 7 mg tablet (Rybelsus) 7 mg PO QDAY #30 tabs 05/17/25 [Rx] MA Intake Visit Data Collection New Patient or Established: Established Patient (seen at [facility] within 3 years) Seen by Clinical Staff ONLY (RN/MA): No Pain Present Currently: No Pain scale:: 0 Pain Scale Used: Patino-Matos/Numerical Supervisor Pre Wave Required: No PCP or OBGYN visit in last 3 months: No Hx Now: No Do You Feel Safe at Home: Yes Authorities Contacted: N/A Smoking Status Smoking Status: Current every day smoker Cessation Counseling Provided: MARIA INES was advised that quitting smoking is the single most important factor to protect the health of themselves and their family. Discussed the benefits of quitting smoking with patient. Encouraged patient to quit smoking and provided Cessation assistance materials and resources. Tobacco Use: Cigarette Years smoked: 20 Are you interested in quitting?: Yes Would you like additional Smoking Cessation Counseling?: No Immunization / Flu Flu Vaccine in the Last 12 Months: No Flu Vaccine Exclusion Criteria: No Exclusion Criteria Past Medical History Past Medical History CARDIAC: Positive Cardiac Disorders and Hypertension; Negative Congestive Heart Failure RESPIRATORY: Positive Chronic Obstructive Pulmonary Disease (COPD) GENITOURINARY: Negative Renal Disease MUSCULOSKELETAL: Positive Degenerative Disk Disease ENDOCRINE: Positive Endocrine Disorders and Diabetes Mellitus Type 2; Negative Diabetes Mellitus Type 1 Surgical History SURGICAL: Positive Tonsillectomy and Tubal Ligation Social History SMOKING STATUS: Smoking status: Current every day smoker ALCOHOL FREQUENCY: Alcohol Intake Frequency: holidays/special occasions only LIVES WITH: Lives With: Family Patient Portal Questionaires Social History Tobacco History Smoking Status: Current every day smoker Alcohol History Alcohol Intake Frequency: holidays/special occasions only Domestic Abuse History Do You Feel Safe at Home: Yes Review of Systems Report any current symptoms Only answer those that you have currently: Past Medical History Past Medical History Have you ever been diagnosed with any of the following: Cardiology Problems Congestive Heart Failure: No Hypertension: Yes Respiratory Problems Chronic Obstructive Pulmonary Disease (COPD): Yes Genital/Urinary Problems Renal Disease: No Musculoskeletal Problems Degenerative Disk Disease: Yes Endocrine Problems Diabetes Mellitus Type 1: No Diabetes Mellitus Type 2: Yes History of Present Illness HPI Narrative Patient seen for Dr. Randy Hobson. Work in same-day appointment by patient request due to hyperglycemia. Patient reporting continued elevated glucose readings. Lowest reading has been 150 as a fasting glucose in the morning. Evening readings have ranged from 278 up to 318, never below 250. Has been using insulin glargine 30 units twice daily. She did increase the dose to 34 to 36 units twice daily due to hyperglycemia. Diet reviewed-she has cut back carbs, sugars, sugary beverages. Reports still eating some fruit. The issue is quantity, she is eating more throughout the day as she has substituted food for smoking. She has cut her cigarette consumption down to less than a pack a day. She reports still being hungry. Her activity level is fairly sedentary, some occasional walking. Activity is limited by chronic back pain, history of degenerative disc disease. Activity also limited by symptoms of diabetic neuropathy, with constant burning in her feet. She also reports vision disturbance with everything being blurry, difficulty reading her phone. Discussed that this is likely due in part to the hyperglycemia. Referred to podiatry and ophthalmology at prior visit, these referrals are still pending. Prior diabetic treatment reviewed. She was diagnosed 6 or 7 years ago. Treatment at times was complicated by homelessness. She reports that she previously did smoke marijuana fairly heavily. Current living situation is not homelessness, but she is staying at a residence. She eats what ever food is available there. When first diagnosed, she was on metformin which she did not like. She also was previously on Rybelsus and also Ozempic (per her report apparently at the same time). Use of insulin is new to her since she was hospitalized recently for diabetic ketoacidosis. Denies chest pain. Reports some chronic shortness of breath (history of COPD, has used inhalers previously, trying to cut back on smoking, no prior PFTs available). Denies bowel or bladder complaints. States she is prone to urinary tract infections but does not note any symptoms currently. Reports chronic back pain, history of degenerative disc disease. Denies radicular symptoms. Review of systems also positive for symptoms of diabetic neuropathy in her feet with constant burning sensation. Review of Systems Review of Systems Systems Reviewed: All systems reviewed, normal except as documented (In HPI) Objective/Exam General General Appearance: alert, in no apparent distress and comfortable Head Head exam: atraumatic and normocephalic Eye Eye exam: Present PERRL and EOMI; Absent scleral icterus ENT ENT exam: Present other (No upper teeth. Poor dentition on lower jaw.) Chest Chest inspection: Present normal inspection and symmetric chest wall rise Resp Respiratory exam: Present normal lung sounds bilaterally; Absent wheezes or prol onged expiratory phase Card Cardiovascular exam: Present regular rate and normal rhythm; Absent systolic murmur, diastolic murmur, rubs or gallop Abdominal Abdominal exam: Present soft and normal bowel sounds Abdominal tenderness: Absent RUQ, RLQ, LUQ or LLQ Extremities Extremities exam: Absent pedal edema or calf tenderness Neuro Neurological exam: Present CN II-XII intact Other Other exam information: Dorsalis pedis and posterior tibial pulses intact. Assessment & Plan Diagnosis / Problem List (1) Type 2 diabetes mellitus with hyperglycemia: Status: Acute Assessment & Plan: Lowest blood glucose reading she has had has been 150 with a fasting a.m. reading. Typically though her readings are much higher. Evening/night readings are never below 250, have been ranging 278-318. Plan: Patient previously was on metformin but did not like it, possible side effects. Patient was previously on Rybelsus as well as Ozempic. She has lost weight, but suspect some of that is due to hyperglycemia. Her weight loss has plateaued. She is eating more because of trying to quit smoking. We will resume Rybelsus 7 mg daily. Patient reports that she tolerated this dose. We will have to see if it is approved with her insurance. We will also additionally start short acting insulin lispro at meals, start with 5 units but may titrate up to 10 units as needed. Patient reports being comfortable with this and understands adjusting based on what the Premeal blood glucose reading is, along with the amount of carbohydrate that she will be eating. We will continue with insulin glargine 30 units twice daily. She had adjusted this upwards because of her sugars being elevated, but with adding Premeal bolus insulin lispro, we will scale it back to 30 units twice daily. She is also empowered to adjust this upwards if the fasting glucose readings continue to be elevated. She will adjust the nighttime glargine injection upwards first. She may also adjust the morning glargine injection upwards if she continues to have elevated evening glucose readings. I suspect though that with Premeal insulin, that the evening readings will improve. Patient advised to continue to limit sugars and carbs, increase protein intake, and to try to gradually increase her daily activity level as this will help lower her glucose readings as well. Needs refill on test trips, we will prescribe this today along with the Rybelsus and insulin lispro (2) Diabetic neuropathy: Status: Acute Assessment & Plan: There is continuous burning sensation in her feet, occasional [id number], decreased sensation. Plan: Has been referred to podiatry. Has previously tried gabapentin but states that it did nothing. We will try pregabalin 75 mg twice daily. Explained to the patient that this is the lowest dose and she may not notice any effect, but as long as she tolerates it, we can titrate the dose upwards at future visits. (3) Chronic back pain greater than 3 months duration: Status: Acute Assessment & Plan: Patient reports chronic back ache. Apparently has history of degenerative disc disease. No abel radicular symptoms. Plan: Want to avoid narcotic use. Patient does report previously smoking marijuana, but is now clean. She has used alternating Tylenol and ibuprofen in the past. We will prescribe these today. Tylenol 500 mg 1 to 2 tablets 3 times a day as needed, maximum daily dose 3000 mg. Ibuprofen 800 mg 3 times daily as needed, maximum daily dose 2400 mg. Continue to encourage weight loss and gradual increase in activity. Lyrica that we have added for diabetic neuropathy may also help some with her back pain. Physician Billing Established Patient Established Patient: E/M Level 4-CPT [id number] Office Procedures [facility] Level of Care Nursing/Assessment Patient Status: Established Patient Nursing Assessment/Reassessment: Medication Reconciliation, Update PMH in EMR and Vital Signs Coordination of Care: Complex Care and Chronic Disease 1-5, Consent,records obtained, informed consent, Education Simp Pt/Fam and Staff clarify orders Established Patient Charge Established Patient Point Assignment: 85 Established Patient Point Charge: Level 3 (80-115)
[2025-05-17 09:36] VITALS: BP 102/68; PULSE 90; RESP 18; TEMP 36.8; O2SAT 96; BMI 30.6
== END 2025-05-17 10:38 | disposition home or self-care (01) ==
LOC: HODAHC 09:16
PROVIDERS: Supervising Provider Internal Medicine
DX: E11.65 Type 2 diabetes mellitus with hyperglycemia (principal); Z79.84 Long term (current) use of oral hypoglycemic drugs; E11.40 Type 2 diabetes mellitus with diabetic neuropathy, unspecified; Z79.4 Long term (current) use of insulin; G89.29 Other chronic pain; M54.9 Dorsalgia, unspecified
CPT/HCPCS: 99213; G0463

== ENCOUNTER 2025-06-22 10:19 | Outpatient (AMB) | payer MEDICAID, SELFPAY ==
[2025-06-22 10:43] VITALS: BP 120/80; PULSE 81; RESP 18; TEMP 36.2; O2SAT 98; BMI 34.0
--- NOTE | 2025-06-22 10:43 | ACNOTE_ITS ---
Vital Signs 06/22/25 10:43 Height 1.63 m Height Method Stated Weight 90.265 kg Weight Measurement Method Standing Scale BMI 34.0 BP 120/80 Blood Pressure Source Automatic Cuff Blood Pressure Location Left Upper Arm Position Sitting Respiration 18 Pulse 81 Pulse Source Monitor Temp 97.1 F Temp Source Oral Pulse Oximetry (%) 98 Oxygen Delivery Method Room Air Allergies/Meds Allergies & Medications Allergies Penicillins Allergy (Severe, Verified 06/22/25 10:43) Swelling of Lip/Tongue/Throat Medication Reconciliation blood-glucose meter (Accu-Chek Guide Glucose Meter) #1 ea 05/04/25 [Rx Confirmed 06/22/25] lancets 30 gauge #100 ea 05/04/25 [Rx Confirmed 06/22/25] pen needle, diabetic 29 gauge #100 ea 05/04/25 [Rx Confirmed 06/22/25] zinc oxide 5 % topical cream 1 applic topical BID #177.4 mL 05/08/25 [Rx Confirmed 06/22/25] acetaminophen 500 mg tablet (Tylenol Extra Strength) 1,000 mg (2 x 500 mg) PO TID PRN pain #180 tabs 05/18/25 [Rx Confirmed 06/22/25] ibuprofen 800 mg tablet 800 mg PO TID PRN pain #90 tabs 05/18/25 [Rx Confirmed 06/22/25] insulin lispro 100 unit/mL subcutaneous pen See Rx Instructions subcut .COMPLEX #15 mL 05/18/25 [Rx Confirmed 06/22/25] albuterol 90 mcg-budesonide 80 mcg/actuation HFA aerosol inhaler 2 inh inhalation QDAY PRN shortness of breath #10.7 grams 06/22/25 [Rx] atorvastatin 40 mg tablet 40 mg PO QHS #60 tabs 06/22/25 [Rx] blood sugar diagnostic (Accu-Chek Guide test strips) #100 ea 06/22/25 [Rx] bupropion HCl 150 mg tablet,12 hr sustained-release 150 mg PO BID #90 ea 06/22/25 [Rx] fluticasone propionate 220 mcg/actuation HFA aerosol inhaler 1 puff inhalation BID PRN shortness of breath or wheezing #12 grams 06/22/25 [Rx] insulin glargine 100 unit/mL (3 mL) subcutaneous pen 30 unit (0.3 mL) subcut BID 1 month #15 mL 06/22/25 [Rx] meclizine 25 mg tablet 25 mg PO BID PRN dizziness #30 tabs 06/22/25 [Rx] pregabalin 150 mg capsule 150 mg PO BID #30 caps 06/22/25 [Rx] semaglutide 7 mg tablet (Rybelsus) 7 mg PO QDAY #30 tabs 06/22/25 [Rx] umeclidinium 62.5 mcg-vilanterol 25 mcg/actuation powdr for inhalation (Anoro Ellipta) 1 inh inhalation QDAY PRN shortness of breath or wheezing #60 ea 06/22/25 [Rx] MA Intake Visit Data Collection New Patient or Established: Established Patient [place] [facility] [place] Seen by Clinical Staff ONLY (RN/PETER): No Pain Present Currently: No Pain scale:: 0 Pain Scale Used: Patino-Matos/Numerical PCP or OBGYN visit in last 3 months: Yes Do You Feel Safe at Home: Yes Authorities Contacted: N/A Smoking Status Smoking Status: Current every day smoker Cessation Counseling Provided: MARIA INES was advised that quitting smoking is the single most important factor to protect the health of themselves and their family. Discussed the benefits of quitting smoking with patient. Encouraged patient to quit smoking and provided Cessation assistance materials and resources. Tobacco Use: Cigarette Years smoked: 80 Are you interested in quitting?: Yes Would you like additional Smoking Cessation Counseling?: No Immunization / Flu Flu Vaccine in the Last 12 Months: No Flu Vaccine Exclusion Criteria: No Exclusion Criteria Past Medical History Past Medical History CARDIAC: Positive Cardiac Disorders and Hypertension; Negative Congestive Heart Failure RESPIRATORY: Positive Chronic Obstructive Pulmonary Disease (COPD) GENITOURINARY: Negative Renal Disease MUSCULOSKELETAL: Positive Degenerative Disk Disease ENDOCRINE: Positive Endocrine Disorders and Diabetes Mellitus Type 2; Negative Diabetes Mellitus Type 1 Surgical History SURGICAL: Positive Tonsillectomy and Tubal Ligation Social History SMOKING STATUS: Smoking status: Current every day smoker ALCOHOL FREQUENCY: Alcohol Intake Frequency: holidays/special occasions only LIVES WITH: Lives With: Family Patient Portal Questionaires Social History Tobacco History Smoking Status: Current every day smoker Alcohol History Alcohol Intake Frequency: holidays/special occasions only Domestic Abuse History Do You Feel Safe at Home: Yes Review of Systems Report any current symptoms Only answer those that you have currently: Past Medical History Past Medical History Have you ever been diagnosed with any of the following: Cardiology Problems Congestive Heart Failure: No Hypertension: Yes Respiratory Problems Chronic Obstructive Pulmonary Disease (COPD): Yes Genital/Urinary Problems Renal Disease: No Musculoskeletal Problems Degenerative Disk Disease: Yes Endocrine Problems Diabetes Mellitus Type 1: No Diabetes Mellitus Type 2: Yes History of Present Illness HPI Narrative Patient seen for Dr. Randy Hobson. Work in same-day appointment by patient request due to hyperglycemia. Patient reporting continued elevated glucose readings. Lowest reading has been 150 as a fasting glucose in the morning. Evening readings have ranged from 278 up to 318, never below 250. Has been us ing insulin glargine 30 units twice daily. She did increase the dose to 34 to 36 units twice daily due to hyperglycemia. Diet reviewed-she has cut back carbs, sugars, sugary beverages. Reports still eating some fruit. The issue is quantity, she is eating more throughout the day as she has substituted food for smoking. She has cut her cigarette consumption down to less than a pack a day. She reports still being hungry. Her activity level is fairly sedentary, some occasional walking. Activity is limited by chronic back pain, history of degenerative disc disease. Activity also limited by symptoms of diabetic neuropathy, with constant burning in her feet. She also reports vision disturbance with everything being blurry, difficulty reading her phone. Discussed that this is likely due in part to the hyperglycemia. Referred to podiatry and ophthalmology at prior visit, these referrals are still pending. Prior diabetic treatment reviewed. She was diagnosed 6 or 7 years ago. Delaney bragg at times was complicated by homelessness. She reports that she previously did smoke marijuana fairly heavily. Current living situation is not homelessness, but she is staying at a residence. She eats what ever food is available there. When first diagnosed, she was on metformin which she did not like. She also was previously on Rybelsus and also Ozempic (per her report apparently at the same time). Use of insulin is new to her since she was hospitalized recently for diabetic ketoacidosis. Denies chest pain. Reports some chronic shortness of breath (history of COPD, has used inhalers previously, trying to cut back on smoking, no prior PFTs available). Denies bowel or bladder complaints. States she is prone to urinary tract infections but does not note any symptoms currently. Reports chronic back pain, history of degenerative disc disease. Denies radicular symptoms. Review of systems also positive for symptoms of diabetic neuropathy in her feet with constant burning sensation. 06/22/25: Patient was seen and examined in the clinic. She reported to have worsening neuropathy mainly in her legs. She also reported to have chronic back pain and chest discomfort off-and-on. She stated that she has been cutting back on smoking cigarettes currently smoking 1 pack every 2 days. She had a smoking history around 16 years. She reported she has dizziness mainly in the morning with no ringing in the ears. Autoscope examination showed mild erythematous ear canal with intact eardrum. Blood sugars are under control around 90-130 mg per dl. She is using insulin 30 units twice daily and lispro as needed. A1c was more than 14 in April 2025. She had a weight gain of 10 kg from last 1 month due to diet noncompliance. Recommended to continue Rybelsus with strict low carb consistent diet. Patient reported nicotine patches have not been helpful. Also reported, Lyrica has not been helping with neuropathy. She was advised to continue glargine 30 units twice daily, dose of Lyrica was increased to 150 twice daily, added bupropion SR 150 mg once daily for 3 days then twice daily from day 4 to be continued in that direction. She was given prescription refill for her statin. Breathing inhalers including Anoro Ellipta, fluticasone and rescue inhaler were given. Review of Systems Review of Systems Systems Reviewed: All systems reviewed, normal except as documented Objective/Exam Narrative Physical exam: GENERAL APPEARANCE: AxOx4, generally well-appearing female in no acute distress. HEENT: NC, AT. MMM. EOMI, clear conjunctiva, oropharynx clear. NECK: Supple without lymphadenopathy. No stiffness or restricted ROM. HEART: Regular rate and regular rhythm, normal S1/S2, no m/r/g LUNGS: CTAB, moving air well. No crackles or wheezes are heard. ABDOMEN: Soft, nontender, nondistended with good bowel sounds heard. BACK: No CVAT, no obvious deformity. EXTREMITIES: Without cyanosis, clubbing or edema. NEUROLOGICAL: Grossly nonfocal. Alert and oriented, moving all 4 extremities. CN not formally tested but appear grossly intact. Observed to ambulate with normal gait. Skin: Warm and dry without any rash. Psych: appropriate mood and affect Assessment & Plan Diagnosis / Problem List (1) Dizziness: Status: Acute Assessment & Plan: - Patient reported to have dizziness for the last 1 month -Autoscope examination revealed mild erythema in right ear canal with intact eardrum. Left ear canal was normal Plan: - Meclizine 25 mg twice daily as needed for dizziness (2) COPD (chronic obstructive pulmonary disease): Status: Acute Qualifiers: COPD type: unspecified COPD Qualified Code(s): J44.9 - Chronic obstructive pulmonary disease, unspecified Assessment & Plan: - Patient used to smoke 2 packs of cigarette every day for 40 years - Currently cutting back on smoking 1 pack every 2 days - Reported the nicotine patch were not helpful Plan: -Albuterol rescue inhaler, fluticasone inhaler and Anoro Ellipta given - Recommended to cut back on smoking (3) Diabetic neuropathy associated with diabetes mellitus due to underlying condition: Status: Acute Qualifiers: Diabetes mellitus complication detail: diabetic polyneuropathy Qualified Code(s): E08.42 - Diabetes mellitus due to underlying condition with diabetic polyneuropathy Assessment & Plan: - Patient reported to have worsening of neuropathy. Poorly controlled diabetes mainly in her lower extremities - Blood sugars around 90?130 mg during fasting - A1c > 14 in April 2025 Plan: - Dose of Lyrica increased to 150 mg twice daily -Awaiting insurance authorization for project safety manager and ophthalmology referral - Recommended to continue insulin 30 units twice daily and lispro as needed (4) Encounter for smoking cessation counseling: Status: Acute Assessment & Plan: - Patient used to smoke 2 packs of cigarette every day for 40 years - Currently cutting back on smoking 1 pack every 2 days - Reported the nicotine patch were not helpful Plan: - Bupropion SR 150 mg given once every day for 3 days then twice every day later on - Advised on smoking cessation Patient was seen and discussed with attending physician, Dr.Watankunakorn Dr Alma MD PGY3 Office Procedures [facility] Level of Care Nursing/Assessment Patient Status: Established Patient Nursing Assessment/Reassessment: Medication Reconciliation, Update PMH in EMR and Vital Signs Coordination of Care: Complex Care and Chronic Disease 1-5, Education Complex Pt/Fam, Results/Orders obtained and Staff clarify orders Established Patient Charge Established Patient Point Assignment: 90 Established Patient Point Charge: Level 3 (80-115)
== END 2025-06-22 11:34 | disposition home or self-care (01) ==
PROVIDERS: Supervising Provider Student in an Organized Health Care Education/Training Program; Visit Provider Student in an Organized Health Care Education/Training Program
DX: R42 Dizziness and giddiness (principal); E11.40 Type 2 diabetes mellitus with diabetic neuropathy, unspecified; Z79.84 Long term (current) use of oral hypoglycemic drugs; Z79.4 Long term (current) use of insulin; F17.210 Nicotine dependence, cigarettes, uncomplicated; J44.9 Chronic obstructive pulmonary disease, unspecified; Z71.6 Tobacco abuse counseling
CPT/HCPCS: 99213; G0463